=== PATIENT | female | born 1950 | race Caucasian/White ===

== ENCOUNTER → 2018-03-28 12:45 | Outpatient (REF) | payer MEDICARE, BC, SELFPAY ==
--- NOTE | 2018-03-28 11:00 | PAPFT_PTH ---
PATIENT: Shannon Payan LOC: [facility] U#:[id number] AGE/SX: 74/F ROOM: RE03/28/[address]: Mitzy Matias MD, DC : 1950 BED: DIS: SPEC #: [id number] RECD: 03/28/18 13:01 STATUS: JOSE ANGEL CHAVEZ #: [id number] CLARE: 03/28/18 11:[address]: Mitzy Matias DEPT: [facility] Cytology RECD BY: Ines Kelley Tissues: 1 - CX/ENDOCX FOR PAP SMEARS Procedures: PAP THIN PREP/UVM Screening HPV DNA PROBE Comments: [id number]
== END ==
LOC: LBN 12:45
PROVIDERS: PCP Family Medicine; Visit Provider Family Medicine
DX: Z12.4 Encounter for screening for malignant neoplasm of cervix (principal); Z11.51 Encounter for screening for human papillomavirus (HPV)
CPT/HCPCS: 88142; 87624

== ENCOUNTER 2018-05-10 01:52 | Outpatient (CLI) | payer MEDICARE, BC, SELFPAY ==
[2018-05-12 05:09] LABS: Vitamin D 25 Total 36.5 ng/ml (30-100)
== END 2018-05-10 02:12 ==
PROVIDERS: PCP Family Medicine; Visit Provider Internal Medicine Sleep Medicine
DX: E55.9 Vitamin D deficiency, unspecified (principal)
CPT/HCPCS: 36415; 82306

== ENCOUNTER 2019-02-24 09:52 | Outpatient (CLI) | payer MEDICARE, BC, SELFPAY ==
--- NOTE | 2019-02-24 10:00 | DI.RAD_ITS ---
SYMPTOM/DIAGNOSIS: KNEE PAIN, M25.569, LOCKING OF KNEE RIGHT KNEE: Three views. Comparison is made with 12/05/15. There is moderately severe narrowing of the lateral femoral tibial joint space and the patellofemoral joint. Periarticular spurring is seen involving predominantly the lateral femorotibial joint and the patellofemoral joint. The bones are intact and normally mineralized. There is a small suprapatellar joint effusion. The soft tissues are otherwise unremarkable. IMPRESSION: Moderately severe degenerative changes of the right knee. LEFT KNEE: Three views. No priors. There is mild narrowing of the medial femorotibial joint space. Mild spurring is seen of the posterior patella. The bones are intact and normally mineralized. There is a small to moderate sized suprapatellar joint effusion. The soft tissues are unremarkable. IMPRESSION: Mild degenerative changes of the left knee.
== END 2019-02-24 10:12 ==
PROVIDERS: PCP Family Medicine; Visit Provider Family Medicine
DX: M25.561 Pain in right knee (principal); M25.562 Pain in left knee; M17.0 Bilateral primary osteoarthritis of knee; M25.461 Effusion, right knee; M25.462 Effusion, left knee
CPT/HCPCS: 73562

== ENCOUNTER → 2019-03-15 08:42 | Outpatient (BNVA) | payer MEDICARE, BC, SELFPAY | PROVIDERS: PCP Family Medicine; Referring Provider Family Medicine; Visit Provider Student in an Organized Health Care Education/Training Program | DX: M23.92 Unspecified internal derangement of left knee (principal); M17.11 Unilateral primary osteoarthritis, right knee; M25.561 Pain in right knee; M25.562 Pain in left knee | CPT/HCPCS: 20610; 99203; J1040 ==

== ENCOUNTER 2019-03-24 02:34 | Outpatient (CLI) | payer MEDICARE, BC, SELFPAY ==
--- NOTE | 2019-03-24 09:49 | DI.MRI_ITS ---
SYMPTOMS/DIAGNOSIS: LT KNEE SWELLING, LOCKING, STIFFNESS, ? INTERNAL DERANGEMENT, M23.92 LEFT KNEE MRI: MRI examination of the knee was performed according to the usual protocol. There is a small knee joint effusion and a small arroyo's cyst is noted. This measures roughly 25 x 15 mm in greatest diameter on sagittal images. There is cartilage loss of the patellofemoral joint particularly involving the medial facet. There is cartilage loss of medial and lateral tibiofemoral joints most prominent medially with irregular cartilage surface particularly of the medial femoral condyle. There is abnormal signal in the medial meniscus without a discrete tear. The lateral meniscus appears to be discoid. No lateral meniscal tear seen. No significant collateral ligament injury seen. Mildly abnormal signal noted in medial femoral condyle consistent with degenerative changes. No cruciate ligament tear seen. CONCLUSION: Degenerative arthritis most marked involving medial tibiofemoral joint. No evidence of internal derangement.
== END 2019-03-24 02:54 ==
PROVIDERS: PCP Family Medicine; Visit Provider Student in an Organized Health Care Education/Training Program
DX: M17.12 Unilateral primary osteoarthritis, left knee (principal)
CPT/HCPCS: 73721

== ENCOUNTER 2019-03-28 02:17 | Outpatient (CLI) | payer MEDICARE, BC, SELFPAY ==
[2019-03-28 09:44] LABS: ALT 45 U/L (12-78); AST 14 U/L (15-37); Albumin 3.6 g/dL (3.4-5.0); Alkaline Phosphatase 75 U/L (46-116); Anion Gap 9.8 mmol/L (3-11); BUN 21 mg/dL (7-18); Bilirubin, Total 0.4 mg/dL (0.2-1.0); CO2 27.2 mmol/L (21.0-32.0); CREATININE 0.73 mg/dL (0.55-1.02); Calcium 8.6 mg/dL (8.5-10.1); Chloride 107 mmol/L (98-107); Glucose 97 mg/dL (70-100); Potassium 4.2 mmol/L (3.5-5.1); Sodium 144 mmol/L (136-145); TSH (W/Ref FT4) 1.97 uIU/mL (0.36-3.74); Total Protein 6.8 g/dL (6.4-8.2)
== END 2019-03-28 02:37 ==
PROVIDERS: PCP Family Medicine; Visit Provider Family Medicine
DX: E03.9 Hypothyroidism, unspecified (principal); I49.9 Cardiac arrhythmia, unspecified
CPT/HCPCS: 36415; 80053; 84443

== ENCOUNTER → 2019-03-29 08:16 | Outpatient (BNVA) | payer MEDICARE, BC, SELFPAY | PROVIDERS: PCP Family Medicine; Referring Provider Family Medicine; Visit Provider Student in an Organized Health Care Education/Training Program | DX: M17.12 Unilateral primary osteoarthritis, left knee (principal); M17.11 Unilateral primary osteoarthritis, right knee; Z98.890 Other specified postprocedural states; Z86.14 Personal history of Methicillin resistant Staphylococcus aureus infection | CPT/HCPCS: 99213 ==

== ENCOUNTER 2019-05-16 14:26 | Outpatient (CLI) | payer MEDICARE, BC, SELFPAY ==
--- NOTE | 2019-05-16 13:57 | DI.RAD_ITS ---
EXAM: XR STANDING ALIGNMENT INDICATION: pre-operative films. COMPARISON: No exams were available for comparison TECHNIQUE: 2D digital imaging was performed. FINDINGS: In the right knee, there is moderate narrowing of the lateral femorotibial joint space. There is mil d spurring seen laterally. In the left knee, there is mild joint space narrowing and periarticular spurring in the medial femoro tibial joint space. The right lower extremity measures 88.9 cm. The left lower extremity measures 88.8 cm. IMPRESSION: Osteoarthritis of the knees.
== END 2019-05-16 14:46 ==
PROVIDERS: PCP Family Medicine; Visit Provider Student in an Organized Health Care Education/Training Program
DX: M17.0 Bilateral primary osteoarthritis of knee (principal)
CPT/HCPCS: 36415; 80048; 85027; 77073

== ENCOUNTER 2019-05-16 14:39 | Outpatient (CLI) | payer MEDICARE, BC, SELFPAY ==
--- NOTE | 2019-05-16 13:03 | W.PREOPHP ---
Assessment and Plan Assessment and plan (1) Primary localized osteoarthritis of right knee: Status: Chronic Assessment and plan: Plan: Standing alignment films were ordered for pre-operative planning. Educated patient on surgery covering surgical technique via models, recovery process, benefits and risks including but not limited to risk of infection, blood clot, damage to soft tissue/blood vessels/nerves in detail. After discussion patient gives verbal understanding of risks and elects to proceed with scheduling surgery. Patient had opportunity to have questions answered to their satisfaction. They will contact office if issues arise. Patient will continue to be scheduled for right TKA with Dr. Matt. History of Present Illness Narrative: Ms. Payan is a 68-year-old female who presents to clinic for pre-operative visit for scheduled right TKA with Dr. Matt. Patient has been seen in clinic several times regarding bilateral knee pain due to known DJD. She has been experiencing more long-lasting pain in the right knee. She describes as being located most significantly over the lateral aspect of the knee; feels weak especially with twisting motions. Pain is an intermittent pain that can happen at night, at rest and sometimes with activity such as uneven ground and stairs. Patient has undergone arthroscopic surgery to the right knee in ~2015. She did receive bilateral knee injections which provided significant symptomatic relief for approximately 10 days. Due to patient's continued pain and arthritis she was offered surgical intervention and elected to proceed. Due to patient's history of MRSA within her nares she was previously prescribed mupirocin 2% to apply to the nares twice daily for 5 days before surgery. Pertinent Surgical Information Reports had a severe left tonsil infection as a teen that resulted in permanent scar tissue formation. Denies any current sore throat, fevers, difficulty swallowing. Denies past medical history of: Hypertension, stroke, cardiac issues, angina, asthma, COPD, renal issues, liver issues, hepatitis, gastrointestinal issues, ulcers, bleeding disorders, seizures, migraines, anxiety, depression, diabetes, autoimmune disorders Denies prior complications from surgery or anesthesia. Review of Systems Constitutional Constitutional: Denies fever(s), Denies frequent falls and Denies headache(s) Eyes Eyes: Denies change in vision ENT Ears, Nose, Mouth, and Throat: Denies dizziness, Denies ear discharge, Denies headache(s), Denies epistaxis, Denies nasal discharge and Denies sore throat Cardiovascular Cardiovascular: Denies chest pain, Denies rapid heart rate, Denies irregular heart rhythm, Denies palpitations, Denies dyspnea, Denies dyspnea on exertion, Denies orthopnea, Denies paroxysmal nocturnal dyspnea and Denies slow heart rate Respiratory Respiratory: Denies cough, Denies dyspnea, Denies dyspnea on exertion and Denies wheezing Gastrointestinal Gastrointestinal: Denies abdominal pain, Denies melena, Denies hematochezia, Denies constipation, Denies diarrhea, Denies nausea and Denies vomiting Genitourinary Genitourinary: Denies hematuria, Denies dysuria and Denies urinary urgency Musculoskeletal Musculoskeletal: Reports as per HPI, Denies numbness and Denies tingling Neurologic Neurologic: Denies dizziness, Denies frequent falls, Denies headache(s), Denies numbness and Denies tingling Psychiatric Psychiatric: Denies anxiety and Denies depression Endocrine Endocrine: Denies palpitations Allergic/Immunologic Allergic/Immunologic: Denies wheezing [facility] Medical History (Updated 05/16/19 @ 13:28 by Gem Jones) Allergic rhinitis (Chronic) seasonal; Basal cell carcinoma of back (Resolved) BASAL CELL CANCER ON HER BACK Cardiac arrhythmia (Resolved) PVC'S Cervical pain (neck) (Chronic 05/26/16) Hypothyroidism (Chronic 08/04/12) 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) Obstructive sleep apnea syndrome (Chronic 07/15/07) Bi-PAP Polyp of colon (Chronic) Tubular adenoma ([facility] 07/28) Squamous cell carcinoma (Acute) Face Varicose veins of lower extremity (Chronic) Vitamin D deficiency (Chronic 03/28/18) Surgical History (Updated 05/16/19 @ 13:28 by Gem Jones) frozen shoulder Right History of local excision of skin lesion (Acute) 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 Maternal Grandmother , 78 Diabetes Essential hypertension Breast cancer Paternal Grandmother , 89 No problems noted. Son Essential hypertension Son No problems noted. Son No problems noted. Other Family hx-breast malignancy Social History Smoking/Tobacco Use Status: Never Alcohol Intake: current Alcohol Intake frequency: 0-2 drinks per day Drug use: Never Substance use type: does not use Caregiver/Support person: No Household members: spouse Housing: house Communication Needs: Corrective Lenses Do you need help understanding health information?: Rarely Pets and animals: Yes Pets and animals: dog(s) Sexually active: No Do you think of yourself as: straight/heterosexual Current gender identity: female What is your relationship status?: How often do you talk on the phone with friends or family?: twice per week How often do you get together with friends or relatives?: once per week How often do you attend scientology or gnosticist services?: 1-3 times per year Do you belong to any clubs or organized social groups?: yes Panel score (0-1 are the most socially isolated patients): 3 What type of physical activity do you participate in: walking Duration: 15-30 minutes/day Frequency: 3-4 times per week Silvia/Episcopalian: Anglican Special silvia needs: No Seatbelt use: always Helmet use: Yes Helmet use: always Drive intox or ride w/intox armor reconnaissance vehicle driver: No Meds Home Medications and Allergies Home Medications Medication Instructions Recorded Confirmed Type ibuprofen 2 - 4 tab PO PRN 04/11/13 04/03/19 History Bi-Pap 05/26/16 04/03/19 Clinic propranolol 10 mg PO BID PRN #30 tab-cap 03/28/18 04/03/19 Rx nystatin 100,000 unit/gram topical 1 applic TP TID #60 gm 05/26/18 04/03/19 Rx powder mupirocin 2 % topical ointment 1 applic TP BID #30 gm 03/29/19 04/03/19 Rx epinephrine 0.3 mg/0.3 mL 0.3 mg IM ONCE #2 pen 04/03/19 04/03/19 Rx injection, auto-injector estradiol 1 gm VG HS PRN #42.5 gm 04/03/19 04/03/19 Rx hydrocortisone 2.5 % topical cream 1 applic TP QHS PRN gm 04/03/19 04/03/19 History ketoconazole 2 % topical cream 1 applic TP DAILY PRN 04/03/19 04/03/19 History levothyroxine 50 mcg tablet 50 mcg PO DAILY #90 tab-cap 04/03/19 04/03/19 Rx magnesium 250 mg tablet 250 mg PO DAILY 04/03/19 04/03/19 History metronidazole 0.75 % topical gel 1 applic TOPICAL BID prn #45 gm 04/03/19 04/03/19 Rx jrwuajiwmcgu-svghqqjs-sfkbrw 1 tab PO DAILY 04/03/19 04/03/19 History mupirocin 2 % topical ointment 1 applic TOPICAL BID #22 gm 04/03/19 04/03/19 Rx Allergies Allergy/AdvReac Type Severity Reaction Status Date / Time nickel Allergy Intermediate rash Unverified 05/16/19 13:35 venom-honey bee Allergy Verified 05/16/19 13:35 CAT HAIR Allergy Mild sneezing Uncoded 05/16/19 13:35 DUST Allergy Mild sneezing Uncoded 05/16/19 13:35 trees and grass Allergy Mild Uncoded 05/16/19 13:35 Exam Const General: cooperative and no acute distress [facility] Head: normal to inspection, normocephalic and atraumatic Ears: external ears normal General nose exam: external nose normal and no nasal discharge Face and sinus: face symmetric Mouth: oral mucosae normal, lip normal, tongue normal and moist mucous membranes Teeth and gingiva: dentition normal Throat: abnormal tonsil (enlarged; no erythema or exudates noted) on the left Eyes General: appearance normal, both eyes and all related structures Pupils: PERRL EOM: EOM intact bilaterally Neck Neck: trachea midline Carotids: normal carotid upstroke Lymphatic: no lymphadenopathy noted Resp Effort & Inspection: normal respiratory effort and able to speak in complete sentences Auscultation: clear to auscultation bilaterally, no rales, no rhonchi and no wheezes Cardio Heart Sounds: S1 normal, S2 normal and no murmurs Pulses: radial pulses present bilaterally GI Palpation: soft, no hepatosplenomegaly and nontender Auscultation: normal bowel sounds Skin General skin exam: no rashes or lesions noted
== END 2019-05-16 14:59 ==
PROVIDERS: PCP Family Medicine; Visit Provider Student in an Organized Health Care Education/Training Program
DX: M17.11 Unilateral primary osteoarthritis, right knee (principal); Z01.818 Encounter for other preprocedural examination

== ENCOUNTER 2019-05-16 15:34 | Outpatient (CLI) | payer MEDICARE, BC, SELFPAY ==
[2019-05-16 16:25] LABS: HCT 40.8 % (36.0-46.0); HGB 13.6 g/dL (12.0-15.5); Mean Corp. HGB Concentration 33.3 g/dL (32.0-36.0); Mean Corpuscular Volume 89.9 fL (80-95); Platelet Count 268 x1000/uL (130-400); RBC 4.54 m/cumm (4.00-5.20); RBC Distribution Width 12.8 % (11.7-14.6); White Blood Cell Count 6.57 k/cumm (4.4-10.8)
[2019-05-16 16:46] LABS: Anion Gap 12.4 mmol/L (3-11); BUN 18 mg/dL (7-18); CO2 26.6 mmol/L (21.0-32.0); CREATININE 0.71 mg/dL (0.55-1.02); Calcium 8.9 mg/dL (8.5-10.1); Chloride 106 mmol/L (98-107); Glucose 97 mg/dL (70-100); Sodium 145 mmol/L (136-145)
== END 2019-05-16 15:54 ==
PROVIDERS: PCP Family Medicine; Visit Provider Student in an Organized Health Care Education/Training Program
DX: M25.561 Pain in right knee (principal); M17.11 Unilateral primary osteoarthritis, right knee; Z01.812 Encounter for preprocedural laboratory examination; Z01.818 Encounter for other preprocedural examination
CPT/HCPCS: 36415; 80048; 85027

== ENCOUNTER 2019-05-24 10:26 | Inpatient (IN) | payer MEDICARE, BC, SELFPAY ==
[2019-05-24 10:53] VITALS: BP 163/97; PULSE 74; RESP 16; TEMP 36.2; O2SAT 96
--- NOTE | 2019-05-24 11:08 | HOME_ITS ---
Home Ventilator Equipment Home care company [employer] Reason: Obstructive Sleep Apnea Make: Respironics Model: Dreamstation Mask type: Face mask Mask size: Small Mode: BiPAP Settings: 12/8 Oxygen bleed in (lpm): 0 Condition: Good Date last checked: Year of last sleep study: Compliance Comments:
[2019-05-24 11:17] VITALS: BP 163/97; PULSE 74; RESP 16; TEMP 36.2; O2SAT 96
[2019-05-24] MEDS: Lactated Ringers 1,000 ML 80 ML IV ×2 (11:37→17:42)
[2019-05-24] MEDS: Acetaminophen 500 MG TAB 1000 MG PO ×2 (11:38→19:38)
[2019-05-24] MEDS: Celecoxib 200 MG CAP 400 MG PO (11:38)
[2019-05-24] MEDS: Gabapentin 300 MG CAP PO ×2 (11:39→21:22)
[2019-05-24] MEDS: ceFAZolin 2 GM/50 ML BAG IVPB (13:30)
--- NOTE | 2019-05-24 14:07 | NUR.NOTE ---
Pt reports having flu shot at [facility] on 05/16/19 jmpNursing Note:
[2019-05-24] MEDS: Bupivacaine 0.25% Pres-Free 30 ML VIAL (15:05)
[2019-05-24] MEDS: Normal Saline 20 ML VIAL (15:05)
[2019-05-24] MEDS: Ketorolac 30 MG/ML VIAL (15:05)
[2019-05-24 16:25] VITALS: BP 133/83; PULSE 53; RESP 16; TEMP 36.4; O2SAT 98
[2019-05-24 16:58] VITALS: RESP 12
[2019-05-24] MEDS: Normal Saline Flush 10 ML SYR IV (17:38)
--- NOTE | 2019-05-24 18:13 | NUR.NOTE ---
Nursing Note: Patient arrived from the OR via stretcher and admitted to room 226 at 1540
[2019-05-24] MEDS: Nystatin POWDER 15 GM JAR TP (19:38)
[2019-05-24] MEDS: Aspirin E.C. 81 MG TABEC PO (19:38)
[2019-05-24] MEDS: Celecoxib 200 MG CAP PO (19:38)
[2019-05-24 20:10] VITALS: RESP 12
[2019-05-24 20:17] VITALS: BP 126/82; PULSE 68; RESP 18; TEMP 37; O2SAT 97
[2019-05-24] MEDS: oxyCODONE 5 MG TAB PO (21:22)
[2019-05-24] MEDS: HYDROmorphone 2 MG/ML VIAL 0.5 MG IVP (23:12)
[2019-05-25 00:22] VITALS: BP 102/69; PULSE 59; RESP 17; TEMP 36.7; O2SAT 96
[2019-05-25 04:10] VITALS: BP 121/74; PULSE 62; RESP 16; TEMP 36.8; O2SAT 97
[2019-05-25] MEDS: HYDROmorphone 2 MG/ML VIAL 0.5 MG IVP ×2 (05:54→08:41)
[2019-05-25] MEDS: Lactated Ringers 1,000 ML 80 ML IV (05:58)
--- NOTE | 2019-05-25 06:25 | ROE_ITS ---
Date of service: 05/24/19 Time of Service: 16:25 Operative Note Operative Note DATE OF PROCEDURE: 05/24/19 PRE-OP DIAGNOSIS: Right Knee DJD with Valgus Deformity POST-OP DIAGNOSIS: same PROCEDURE: Right Total Knee Arthroplasty with Intraoperative Navigation SURGEON: Pablo Matt DIRECTOR [employer]: Rolanda Moreno ANESTHESIA: regional and spinal ESTIMATED BLOOD LOSS: 200 PATHOLOGY: none sent TOURNIQUET TIME: 30 COMPLICATIONS: None Patient was transported to: PACU Patient's condition: stable Implants: 1. Depuy Attune Posterior Stabilized Femoral Component, Size 6 Narrow 2. Depuy Attune Fixed Platform Tibial Component, Size 4 3. Depuy Attune 6x8mm Fixed, Stabilized Poly 4. Depuy Attune Patellar Component, Size 32mm Indications: I have seen Shannon in clinic for symptoms of knee arthritis, confirmed with radiographic findings. She has exhausted nonoperative methods and was having significant limitations in daily function and desired better function and less pain. I discussed the technical details of a knee replacement. I explained the risks of the procedure to include, but not limited to, bleeding, infection, pain, stiffness, fracture, damage to nerves and vessels, damage to muscles and tendons, loosening, need for repeat procedure, blood clot and cardiopulmonary demise. Despite these risks, Shannon elected to proceed. Findings: There was significant signs of arthritis throughout the knee. These changes were seen throughout the knee but focus primarily over the lateral compartment. Procedure Description: Shannon was greeted in the preoperative holding area where the correct side was identified and marked. The consent was reviewed with the patient and signed. The history and physical was updated. All questions were answered. Preoperative mediacations were administered: Acetaminophen 1000mg, Celebrex 400mg, and Gabapentin 300mg. An adductor canal block was then administered by the anesthesia team in the PACU. Shannon was taken back to the operating room. A spinal anesthestic was then administered. The patient was placed into the supine position on the operating room table. A nonsterile tourniquet was placed high onto the leg but only used for cementing. Posts were placed for positioning during the procedure. All bony prominences were well padded. Prophylactic antibiotics in the form of Cefazolin were administered. 1g of Tranxemic Acid was given intravenously within 30 minutes of incision. The right leg was then prepped with Chloraprep and draped in a standard fashion with impervious stockinette and extremity drape with Iodine impregnated skin protection. A timeout to confirm correct identity, side and site, procedure, allergies, anesthesia, and medical concerns was performed. With the knee in some flexion, a midline incision was made overlying the knee. Full thickness skin flaps were raised once the extensor mechanism was encountered. These were raised medially and laterally. Any bleeding was controlled with electrocautery. Once the extensor mechanism was fully exposed, a medial parapatellar arthrotomy was performed in a flexed position. All bleeding from the arthrotomy and the geniculate arteries was coagulated. A medial subperiosteal peel was performed with electrocautery to the midcoronal plane. The fat pad was removed while keeping the patellar tendon protected. The anterior distal femur synovium was removed for later visualization. The ACL and PCL were resected and the anterior horn of the lateral meniscus was transected. The knee was then flexed with the patella everted. Large osteophytes from the tibia were removed. Large osteophytes from the femur were removed. There was some hypoplasia of the lateral femoral condyle and any remnant cartilage of the medial femoral condyle was removed for appropriate thickness. A single starting pin was then placed 1cm anterior to the PCL insertion and the notch in the direction of the femoral head. The OrthoAlign device was applied over the pin. It was oriented to be in line with the epicondylar axis and the trochlear groove. It was then pinned into place. The navigation computer was then turned on and calibrated. The distal femur cut was set at 0 degrees varus/valgus and 2.5 degrees flexion. The distal femur cutting guide then was positioned for a 9mm cut. The distal femur was cut with an oscillating saw while protecting the soft tissues. The tibia was then addressed. The OrthoAlign device was placed over the tibial tubercle and medial tibia and secured into position. Once again, OrthoAlign was calibrated and then set for a 0 degree varus/valgus cut and 3 degrees of posterior slope. With this locked into position, the cut thickness stylus was used to assess cut thickness. The lateral side, most involved side, was set for a 4mm cut. This was then held in position and pinned into place with 2 additional pins and a cross pin for stability. The medial and lateral collateral ligaments were protected and the cut was performed. With this completed, it was assessed and noted to be of appropriate dimensions. The guide and OrthoAlign was removed. A spacer block was inserted and the knee was brought into extension. The 6mm spacer block provided full extension, without hyperextension and with stability of both the medial and lateral collateral ligaments was assessed. The pins from the femur and the tibia were then removed. The distal femur was then sized. The anterior stylus was placed onto the lateral ridge of the anterior femur. This indicated a size 6 Narrow femur. The external rotation of the guide was adjusted to 5 degrees to match the epicondylar axis, perpendicular to Michael?s line. The 4-in-1 cutting guide was the placed. The posterior medial femur cut was evaluated and appeared of good thickness. The spacer block was inserted underneath the cutting guide and stability was confirmed in 90 degrees of flexion. An juana wing was used to confirm appropriate position of the anterior cut to avoid notching. This cutting guide was ensured to be flush on the cut surface and then pinned into place with headed pins. While protecting the soft tissues, quad tendon, and collateral ligaments, the anterior and posterior cuts were performed with a saw. The central two pins were removed and the posterior and anterior chamfers were cut next. The notch-cutting guide was placed. This was pinned to lateralize the femoral component as much as possible while keeping it flush on the cut surface. This was then pinned into position. A reciprocating saw was used to make the notch cut. A rasp smoothed the cut surfaces. A trial posterior stabilized femoral component was then inserted, impacted down to the cut surfaces, and the lug holes were drilled. A provisional trial tibial component was placed and the knee was brought through range of motion. The polyethylene was trialed until there was good flexion and extension with excellent stability to the medial and lateral collaterals. The patella was tracking without thumbs. The tibial cut surface was fully exposed. The medial and lateral menisci were removed. The tibia was then sized as a 4. The tibia had been previously marked during trialing to correspond to the center of the tibial component to help with rotation. The trial was aligned to this rolanda, approximately rotated to the medial 1/3rd of the tibial tubercle. The trial was pinned into place. The tibia was prepared with a reamer and a keel punch. The knee was then brought into extension and the patella was measured as 25mm. Using the patellar clamp and cut guide, this was resected to a flat surface with at least 13mm of thickness remaining. The size 32mm patella fit the best. This was oriented and then clamped into position. The lugs were drilled. The trial components were removed. The final components, except for the polyethylene were opened on the back table. The periosteal and capsular tissues, especially posteriorly, around the knee were then systematically injected with a periarticular cocktail consisting of 50cc 0.25% Marcaine, 30mg Ketorolac, 20cc of Exparal and 50cc of injectable saline. The tourniquet was then inflated to 275mmHg. The knee was thoroughly irrigated with a pulse lavage and dried. On the back table, with the implants opened, the cement was mixed. 2 batches of antibiotic laden cement were prepared with vacuum assistance. After the cement was ready a small amount was placed on to the back side of the tibial component at the keel. A small amount was placed onto the posterior flange of the femur. Cement was manual pressurized and impregnated into the cut surface of the tibia. The tibial component was then inserted into the cut surface and impacted into position. Excess cement was removed and the component was reimpacted. Again, excess cement was removed and our attention was then turned to the femur. The femoral cut surface was once again dried and cement was manually impacted into the cut surface. The femoral component was lined with the lug holes and impacted. Excess cement was removed. It was ensured to be down against the cut surface. The trial polyethylene was then inserted and the leg was brought out into full extension for the duration of the cement curing process, approximately 15min. Cement was lastly manually impacted into the cut surface of the patella and the patellar button was clamped into position and held. During this process attention was turned to the gutters of the knee and for all interfaces for any excess cement. The knee was irrigated with Irrisept, Chlorhexadine solution, and allowed to sit in the knee wound for 3 minutes. After the cement had finally cured, approximately 15min, the clamp was removed from the patella and the knee was taken through range of motion. A size 8mm polyethylene component provided the best range of motion and stability with less than 2mm gapping with medial and lateral stress and full extension without sig nificant hyperextension. The patella was tracking with a no-thumbs technique. The trial poly was removed and once again the knee was checked for any loose, excess, or errant cement. The poly component was then inserted and impacted into position after cleaning and drying the tibial tray. The capsule was then reapproximated with a No. 1 Vicryl at multiple locations. The capsule was finally closed with a No. 2 Stratafix, barbed suture. The tourniquet was then released and the arthrotomy appeared watertight without significant bleeding. The second dosing of 1g TXA was started. Deep tissues were then reapproximated with 0 Vicryl and 2-0 Vicryl. The skin was closed with a running 3-0 Monocryl in a subcuticular fashion. This was reinforced with skin glue. A Mepilex silver dressing was applied along with a nvvi-yd-quift CORDELL wrap. A CryoCuff was applied. Shannon was transferred to the hospital bed without difficulty an suffering no apparent complication. Shannon has a good prognosis. Physical therapy will start today and without restrictions, weight-bearing as tolerated. Aspirin 81mg BID will be used for DVT prophylaxis.
[2019-05-25 07:25] VITALS: BP 142/77; PULSE 72; RESP 18; TEMP 36.7; O2SAT 99
--- NOTE | 2019-05-25 08:19 | W.PM.DS.N ---
Date of service: 05/25/19 Time of Service: 08:19 DS: Diagnosis Discharge Diagnosis (1) Primary localized osteoarthritis of right knee: Status: Chronic Discharge Plan Disposition Patient Disposition: HOME Condition: Good Discharge Details Reason For Visit: (R) KNEE TOTAL Admit Date/Time: 05/24/19 10:26 Admit Provider: Pablo Matt Attending Provider: Pablo Matt Primary Care Provider: Mitzy Matias [facility] Hospital Course: Patient was admitted to the medical/surgical floor following the procedure. It was tolerated well without any notable medical, surgical, or anesthetic complications. Mobilization began postoperatively. The youssef catheter was removed and voiding spontaneously. Vitals were stable. Physical therapy worked with the patient and was cleared for discharge home. No acute medical issues. Home Meds and New Rx's Prescriptions: New acetaminophen 500 mg tablet 1,000 mg PO Q8H PRN (Reason: pain) Qty: 90 RF: 3 aspirin 81 mg tablet,delayed release (DR/EC) 81 mg PO BID Qty: 60 RF: 0 celecoxib 200 mg capsule 200 mg PO BID PRN (Reason: pain) Qty: 60 RF: 1 oxycodone 5 mg tablet 5 mg PO Q4H Qty: 18 RF: 0 pantoprazole 40 mg tablet,delayed release (DR/EC) 40 mg PO DAILY Qty: 30 RF: 0 gabapentin 300 mg capsule 300 mg PO QHS Qty: 7 RF: 0 Continued magnesium 250 mg tablet 250 mg PO DAILY RF: 0 hydrocortisone 2.5 % cream 1 applic TP QHS PRNRF: 0 ketoconazole 2 % cream 1 applic TP DAILY PRNRF: 0 mhxuxlxxdysn-oftwqypd-zrycix Tablet 1 tab PO DAILY RF: 0 levothyroxine 50 mcg tablet 50 mcg PO DAILY Qty: 90 RF: 4 metronidazole 0.75 % gel 1 applic Topical BID prn Qty: 45 RF: 3 mupirocin 2 % ointment 1 applic Topical BID Qty: 22 RF: 11 estradiol [Estrace] 0.01 % (0.1 mg/gram) cream 1 gm VG HS PRN Qty: 42.5 RF: 3 epinephrine 0.3 mg/0.3 mL auto-injector 0.3 mg IM ONCE Qty: 2 RF: 1 nystatin 100,000 unit/gram powder 1 applic TP TID Qty: 60 RF: 3 mupirocin 2 % ointment 1 applic TP BID Qty: 30 RF: 0 Bi-pap RF: 0 propranolol 10 MG tablet 10 mg PO BID PRN Qty: 30 RF: 3 loratadine [Claritin] 10 mg Tablet RF: 0 Discontinued ibuprofen 200 MG capsule 2 - 4 tab PO PRN RF: 0 Discharge Instructions Additional Instructions: Dr. Matt?s Total Knee Discharge Instructions Activity: The most important activity is to walk. You should try to take short walks a few times a day. It is important that when resting you work on keeping the knee straight. Avoid putting a pillow behind the knee as this will encourage flexion. Work on range of motion exercises as provided by Physical Therapy. - Start outpatient physical therapy within 2 weeks. - You should wear the NATALIA hose on both legs for 2 weeks. Dressing: Keep the surgical dressing in place for at least one week. After the first week it may be removed and replace with light gauze and tape or nothing. It may get wet after 3 days but avoid soaking the dressing. If it gets wet, just lightly pat dry. Medications: - You should take Tylenol and anti-inflammatory Celebrex as your primary pain control medications - You have been prescribed a stronger pain medication Oxycodone for breakthrough pain, take as needed as prescribed. - You have also been prescribed a stomach acid reduction agent Pantoprozole to help reduce stomach acid and reflux. - You will be taking Aspirin 81mg twice a day for DVT prevention unless instructed otherwise. - If you have constipation you should take Colace or Miralax (both [id number]-heanmiq). It takes most people 3-4 days to have a bowel movement. Follow-up: 2 weeks Referrals: Pablo Matt MD [ [facility] STAFF PHYSICIAN] - [facility] [Provider Group] (Outpatient PT for R TKA. Start by 2 weeks post-op) Activity:: Activity as Tolerated Equipment/Supplies:: Walker Diet:: As Tolerated Discharge Orders Discharge Orders: Discharge Order (Routine); Ordered 05/25/19 Ordered By: Pablo Matt DS: Summary Status at Discharge Functional status at discharge: uses cane/walker Overall status at discharge: patient is progressing back to baseline Mental Status: mental status grossly normal Speech and Movement: speech and movement normal Mood: congruent mood Affect: normal affect Exam Psych Mental Status: mental status grossly normal Speech and Movement: speech and movement normal Mood: congruent mood Affect: normal affect DS: Data Vitals/I&O Vitals and I&O: Vital Signs Temperature 36.8 C 05/25/19 04:10 Temperature Source Tympanic 05/25/19 04:10 Pulse 62 05/25/19 04:10 Pulse Rhythm Regular 05/24/19 23:45 Respiratory Rate 16 05/25/19 04:10 Respiratory Effort Non-Labored 05/24/19 23:45 Respiratory Depth Normal 05/24/19 23:45 Respiratory Pattern Normal 05/24/19 23:45 Blood Pressure 121/74 05/25/19 04:10 Pulse Oximetry 97 05/25/19 04:10 Oxygen Delivery Method Room Air 05/25/19 04:10 Oxygen Flow Rate 0 05/25/19 04:10 Fraction of Inspired Oxygen (FIO2) 21 05/24/19 20:10 Pain Level 3 05/25/19 05:54 Intake & Output 05/24/19 05/24/19 05/25/19 11:59 23:59 11:59 Intake Total 1486.667 / 1486.667 983.999 / 983.999 Output Total 750 / 750 Balance 736.667 / 736.667 983.999 / 983.999 Weight 90.1 kg Intake: IV 1366.667 / 1366.667 983.999 / 983.999 Oral 120 / 120 Output: Urine 450 / 450 Estimated Blood Loss 300 / 300 Other: Urine Color Yellow Urine Appearance Clear Data Completed and Pending Labs on day of discharge: 05/24/19 16:05 Nose MRSA Screen - Pending Preliminary micro results at discharge 05/24/19 16:05 MRSA Screen - Pending Nose [facility] Medical History Allergic rhinitis (Chronic) seasonal; Basal cell carcinoma of back (Resolved) BASAL CELL CANCER ON HER BACK Cardiac arrhythmia (Resolved) PVC'S Cervical pain (neck) (Chronic 05/26/16) Hypothyroidism (Chronic 08/04/12) 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) Obstructive sleep apnea syndrome (Chronic 07/15/07) Bi-PAP Polyp of colon (Chronic) Tubular adenoma ([facility] [place] 07/28) Squamous cell carcinoma (Acute) Face Varicose veins of lower extremity (Chronic) Vitamin D deficiency (Chronic 03/28/18) Surgical History frozen shoulder Right History of local excision of skin lesion (Acute) 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 Maternal Grandmother , 78 Diabetes Essential hypertension Breast cancer Paternal Grandmother , 89 No problems noted. Son Essential hypertension Son No problems noted. Son No problems noted. Other Family hx-breast malignancy Social History Smoking/Tobacco Use Status: Never Alcohol Intake: current Alcohol Intake frequency: 0-2 drinks per day Drug use: Never Substance use type: does not use Caregiver/Support person: No Household members: spouse Housing: house Communication Needs: Corrective Lenses Do you need help understanding health information?: Rarely Pets and animals: Yes Pets and animals: dog(s) Sexually active: No Do you think of yourself as: straight/heterosexual Current gender identity: female What is your relationship status?: How often do you talk on the phone with friends or family?: twice per week How often do you get together with friends or relatives?: once per week How often do you attend alevism or sabianist services?: 1-3 times per year Do you belong to any clubs or organized social groups?: yes Panel score (0-1 are the most socially isolated patients): 3 What type of physical activity do you participate in: walking Duration: 15-30 minutes/day Frequency: 3-4 times per week Silvia/Sikhism: Scientology Special silvia needs: No Seatbelt use: always Helmet use: Yes Helmet use: always Drive intox or ride w/intox commercial trailer truck 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
[2019-05-25] MEDS: Aspirin E.C. 81 MG TABEC PO (08:42)
[2019-05-25] MEDS: Normal Saline Flush 10 ML SYR IV (08:42)
[2019-05-25] MEDS: Pantoprazole 40 MG TABCR PO (08:43)
[2019-05-25] MEDS: Levothyroxine 50 MCG TAB PO (08:43)
[2019-05-25] MEDS: Acetaminophen 500 MG TAB 1000 MG PO (08:43)
[2019-05-25] MEDS: Celecoxib 200 MG CAP PO (08:43)
[2019-05-25] MEDS: Multivitamin w/Minerals TAB 1 TAB PO (08:43)
[2019-05-25] MEDS: Nystatin POWDER 15 GM JAR TP (09:23)
--- NOTE | 2019-05-25 10:52 | INITIAL_ITS ---
- If Service Date Differs Date of service: 05/25/19 Time of Service: 10:52 Care Management Initial Assess REASON FOR HOSPITALIZATION:: Total knee replacement. PAST MEDICAL HISTORY/PAST SURGICAL HISTORY:: Medical History: Allergic rhinitis, seasonal, basal cell carcinoma of back, cardiac arrhythmia, PVC'S, cervical pain (neck), hypothyroidism, MRSA (methicillin resistant Staphylococcus aureus), obstructive sleep apnea syndrome, Bi-PAP, polyp of colon, tubular adenoma, squamous cell carcinoma, face, varicose veins of lower extremity, and vitamin D deficiency. 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 PREVIOUS FUNCTIONAL STATUS/SOCIAL/FAMILY SUPPORTS:: Shannon resides in [place] with her . She states he is quite helpful around the home and is supportive of her. She does most of the cooking and housework but her helps out when needed. She is independent in the community, drives, and manages her own ADLs. CURRENT FUNCTIONAL STATUS:: Shannon is sitting in a chair when meets with her. She is pleasant and easily engages in conversation. She talks about their intermediate home and their 5 month old Labradoddle puppy. She expresses some concerns around their dog who is quite active and says the dog will need to be kept on a leash or in a cage while she recuperates from her knee surgery. ADVANCE DIRECTIVES:: On file at [facility]; Harvey is her agent. Has patient been provided with information about the portal?: Yes Did the patient sign up for the portal?: Yes CODE STATUS:: Full Code INSURANCE COVERAGE / FINANCIAL ISSUES:: BCBS and Medicare CURRENT HOME/COMMUNITY SERVICES/EQUIPMENT:: Shannon has borrowed a walker for home use. She states their shower has a bench in it and her is working on putting together a walk-in bathtub. She has also ordered a raised toilet seat for the bathroom. She reports there are no stairs in the home except for the basement stairs and she has no reason to go to the basement. PRIMARY CARE PHYSICIAN:: Mitzy Matias MD POTENTIAL DISCHARGE NEEDS:: Follow-up appointment with PCP and PT. PATIENT/FAMILY EDUCATION NEEDS:: Discharge plan, limitations, and follow-up plan of care, including Ask Me Three and self-management. ANTICIPATED BARRIERS TO DISCHARGE:: None identified at this time. TRANSPORTATION:: is transporting Shannon home via private vehicle. PLAN:: Shannon will be discharged home when medically cleared by provider. Anticipate no additional services needed at time of discharge. Patient's will be transporting her home upon discharge.
--- NOTE | 2019-05-25 14:20 | PDOC.CMDIS ---
- If Service Date Differs Date of service: 05/25/19 Time of Service: 14:20 LACE Index Scoring Tool - Questions: Length of Stay (in days): 1 Acuity (Admit via E.D.?): No Comorbidities: Any Tumor E.D. Visits: 0 - Answers: Total Score: 3 Risk of Readmission: Low Risk Care Management Discharge Reason for Hospitalization: Total knee replacement. Discharge Plan: Shannon is discharged home. She will follow up with Dr. Matt, her PCP, outpatient PT, and her plan of care as directed. Shannon has all DME needed at home, as she has borrowed a front wheel walker. Patient/Family Education Needs: Nursing will review discharge instructions with Shannon re medications and activity level. Shannon is able to verbalize reason for hospitalization and how to manage care at home.
== END 2019-05-25 11:32 | disposition home or self-care (01) | DRG 470 ==
LOC: PDS 14:46 → MS 15:51
PROVIDERS: Admitting Provider Student in an Organized Health Care Education/Training Program; PCP Family Medicine; Visit Provider Student in an Organized Health Care Education/Training Program
PROC: 0SRC0J9 Replacement of Right Knee Joint with Synthetic Substitute, Cemented, Open Approach (ICD-10-PCS; CPT 27447; principal; 2019-05-24 12:00)
DX: M17.11 Unilateral primary osteoarthritis, right knee (principal); M25.561 Pain in right knee; M21.061 Valgus deformity, not elsewhere classified, right knee; Z96.651 Presence of right artificial knee joint; G89.18 Other acute postprocedural pain; G47.33 Obstructive sleep apnea (adult) (pediatric); Z86.14 Personal history of Methicillin resistant Staphylococcus aureus infection; E03.9 Hypothyroidism, unspecified
CPT/HCPCS: 27447; 20985; 87081; 97110; 97162; NC; J0690; J1885

== ENCOUNTER 2019-06-08 10:26 | Outpatient (CLI) | payer MEDICARE, BC, SELFPAY ==
--- NOTE | 2019-06-08 10:08 | DI.RAD_ITS ---
EXAM: XR STANDING ALIGNMENT INDICATION: 1ST POST OP. COMPARISON: XR STANDING ALIGNMENT from 05/16/2019 TECHNIQUE: 2D digital imaging was performed. FINDINGS: The left leg measures 88.5 cm. The right leg measures 87.7 cm. The patient is status post right TKA.
--- NOTE | 2019-06-08 10:08 | DI.RAD_ITS ---
EXAM: XR KNEE RT 1V INDICATION: 1ST POST OP. COMPARISON: RIGHT KNEE LIMITED 1 OR 2 VIEW from 12/05/2015 TECHNIQUE: 2D digital imaging was performed. FINDINGS: A lateral projection of the right knee is provided. The patient is status post TKA. The prosthesis a ppears to be in good position, surrounding bone intact.
== END 2019-06-08 10:46 ==
PROVIDERS: PCP Family Medicine; Referring Provider Family Medicine; Visit Provider Student in an Organized Health Care Education/Training Program
DX: Z96.651 Presence of right artificial knee joint (principal); Z47.1 Aftercare following joint replacement surgery; M21.70 Unequal limb length (acquired), unspecified site; M17.12 Unilateral primary osteoarthritis, left knee
CPT/HCPCS: 73560; 77073

== ENCOUNTER 2019-06-20 09:45 | Outpatient (CLI) | payer MEDICARE, BC, SELFPAY ==
[2019-06-20 10:15] LABS: HCT 38.7 % (36.0-46.0); HGB 12.4 g/dL (12.0-15.5); Mean Corpuscular Hemoglobin 29.7 pg (27.0-33.0); Mean Corpuscular Volume 92.6 fL (80-95); Mean Platelet Volume 10.5 fL (8.0-11.0); Platelet Count 281 x1000/uL (130-400); RBC 4.18 m/cumm (4.00-5.20); RBC Distribution Width 12.9 % (11.7-14.6); White Blood Cell Count 4.73 k/cumm (4.4-10.8)
[2019-06-20 11:08] LABS: Anion Gap 10.5 mmol/L (3-11); BUN 22 mg/dL (7-18); CO2 27.5 mmol/L (21.0-32.0); Calcium 9.1 mg/dL (8.5-10.1); Chloride 105 mmol/L (98-107); Glucose 93 mg/dL (70-100); Potassium 4.1 mmol/L (3.5-5.1); Sodium 143 mmol/L (136-145)
== END 2019-06-20 10:05 ==
PROVIDERS: PCP Family Medicine; Visit Provider Student in an Organized Health Care Education/Training Program
DX: M25.562 Pain in left knee (principal); M17.12 Unilateral primary osteoarthritis, left knee; Z01.818 Encounter for other preprocedural examination; Z01.812 Encounter for preprocedural laboratory examination
CPT/HCPCS: 36415; 80048; 85027

== ENCOUNTER 2019-06-28 08:55 | Inpatient (IN) | payer MEDICARE, BC, SELFPAY ==
[2019-06-28] VITALS (11 sets, daily range): BP systolic 109–155; BP diastolic 60–91; PULSE 61–81; RESP 11–18; TEMP 36.4–37.1; O2SAT 94–97
[2019-06-28] MEDS: Lactated Ringers 1,000 ML 80 ML IV ×2 (09:46→16:56)
[2019-06-28] MEDS: Acetaminophen 500 MG TAB 1000 MG PO ×2 (10:26→19:42)
[2019-06-28] MEDS: Gabapentin 300 MG CAP PO ×2 (10:26→21:30)
[2019-06-28] MEDS: Celecoxib 200 MG CAP 400 MG PO (10:26)
[2019-06-28] MEDS: Bupivacaine 0.25% Pres-Free 30 ML VIAL ×2 (11:34→14:33)
--- NOTE | 2019-06-28 12:01 | NUR.NOTE ---
Nursing Note: This nurse took another set of vitals on pt after block. She was at 142/78, 96% on room air, hr74, rr16. She was taken to the bathroom to void after this. Pt was able to ambulate to the restroom with two staff members to guide after the block.
[2019-06-28] MEDS: FAMOTIDINE 20 MG/50 ML BAG 200 MG IVPB (12:51)
[2019-06-28] MEDS: ceFAZolin 2 GM/50 ML BAG IVPB (13:13)
[2019-06-28] MEDS: Ketorolac 30 MG/ML VIAL (14:33)
[2019-06-28] MEDS: Normal Saline 20 ML VIAL (14:33)
--- NOTE | 2019-06-28 14:55 | W.PM.OP ---
Date of service: 06/28/19 Time of Service: 14:55 Operative Note Operative Note DATE OF PROCEDURE: 06/28/19 PRE-OP DIAGNOSIS: Left Knee Osteoarthritis POST-OP DIAGNOSIS: same PROCEDURE: Left Total Knee Replacement SURGEON: Pablo Matt CONTACT [employer] OPERATOR HELPER: Gem Jones ANESTHESIA: regional and spinal ESTIMATED BLOOD LOSS: 200 PATHOLOGY: none sent TOURNIQUET TIME: 31 COMPLICATIONS: Other (Partial thickness laceration to a portion of patellar tendon. ) Patient was transported to: PACU Patient's condition: stable Implants: 1. Depuy Attune Posterior Stabilized Femoral Component, Size 5 2. Depuy Attune Fixed Platform Tibial Component, Size 4 3. Depuy Attune 5x7mm Fixed, Stabilized Poly 4. Depuy Attune Patellar Component, Size 35mm Indications: I have seen Shannon in clinic for symptoms of left knee arthritis, confirmed with radiographic findings. Shannon has exhausted nonoperative methods and was having significant limitations in daily function and desired better function and less pain. I discussed the technical details of a knee replacement. I explained the risks of the procedure to include, but not limited to, bleeding, infection, pain, stiffness, fracture, damage to nerves and vessels, damage to muscles and tendons, loosening, need for repeat procedure, blood clot and cardiopulmonary demise. Despite these risks, Shannon elected to proceed. Findings: There was significant signs of arthritis throughout the knee with notable posterior medial tibial wear and lateral femoral hypoplasia. Procedure Description: Shannon was greeted in the preoperative holding area where the correct side was identified and marked. The consent was reviewed with the patient and signed. The history and physical was updated. All questions were answered. Preoperative mediacations were administered: Acetaminophen 1000mg, Celebrex 400mg, and Gabapentin 300mg. An adductor canal block was then administered by the anesthesia team in the PACU. Shannon was taken back to the operating room. A spinal anesthestic was then administered. The patient was placed into the supine position on the operating room table. A nonsterile tourniquet was placed high onto the leg but only used for cementing. Posts were placed for positioning during the procedure. All bony prominences were well padded. Prophylactic antibiotics in the form of Cefazolin were administered. 1g of Tranxemic Acid was given intravenously within 30 minutes of incision. The left leg was then prepped with Chloraprep and draped in a standard fashion with impervious stockinette and extremity drape. A second prep with Chloraprep was performed prior to placing Ioband. A timeout to confirm correct identity, side and site, procedure, allergies, anesthesia, and medical concerns was performed. With the knee in some flexion, a midline incision was made overlying the knee. Full thickness skin flaps were raised once the extensor mechanism was encountered. These were raised medially and laterally. Any bleeding was controlled with electrocautery. Once the extensor mechanism was fully exposed, a medial parapatellar arthrotomy was performed in a flexed position. All bleeding from the arthrotomy and the geniculate arteries was coagulated. A medial subperiosteal peel was performed with electrocautery to the midcoronal plane. The fat pad was removed while keeping the patellar tendon protected. The anterior distal femur synovium was removed for later visualization. The ACL and PCL were resected and the anterior horn of the lateral meniscus was transected. The knee was then flexed with the patella everted. Large osteophytes from the tibia were removed. Large osteophytes from the femur were removed. Using a step drill, and based on preoperative templating, the femoral canal was entered. This was done with a step drill without any difficulty. The intramedullary distal femoral cut guide was inserted, set to a 5 degree valgus cut and 9mm cut thickness. There was some hypoplasia of the lateral femoral condyle and any remnant cartilage of the medial femoral condyle was removed for appropriate thickness. The distal femoral cut guide was then held in position and pinned. With the soft tissues protected, the distal cut was performed. This was passed over a few times to ensure a planar cut. I then turned attention to the tibia. The extramedullary guide was placed onto the leg. The distal aspect was slid medial to adjust for position of center of ankle and stay in line with shaft of the tibia. Approximately 3-5 degrees of posterior slope was kept in the proximal cutting guide. The center of the guide was aligned with the PCL. The stylus was used to assess cut thickness. The medial side, most involved side, was set for a 6mm cut. This was then held in position and pinned into place with 2 additional pins and a cross pin for stability. The medial and lateral collateral ligaments were protected and the cut was performed. While cutting the anterior most aspect of the lateral tibia there was noted to be some movement of the patella and immediately the saw was withdrawn. There was a partial thickness laceration to the patellar tendon involving less than 50% of the width of the tendon. It was inspected in various positions and had no complete cut through the tendon. The cut was then completed and it was assessed and noted to be of appropriate dimensions. The guide was removed. A spacer block was inserted and the knee was brought into extension. The 6mm spacer block provided full extension, without hyperextension and with stability of both the medial and lateral collateral ligaments was assessed. The pins from the femur and the tibia were then removed. The distal femur was then sized. The anterior stylus was placed onto the lateral ridge of the anterior femur. This indicated a size 5 femur. The external rotation of the guide was adjusted to 3 degrees to match the epicondylar axis, perpendicular to Michael?s line. The 4-in-1 cutting guide was the placed. The posterior medial femur cut was evaluated and appeared of good thickness. The spacer block was inserted underneath the cutting guide and stability was confirmed in 90 degrees of flexion. An juana wing was used to confirm appropriate position of the anterior cut to avoid notching. This cutting guide was ensured to be flush on the cut surface and then pinned into place with headed pins. While protecting the soft tissues, quad tendon, and collateral ligaments, the anterior and posterior cuts were performed with a saw. The central two pins were removed and the posterior and anterior chamfers were cut next. The notch-cutting guide was placed. This was pinned to lateralize the femoral component as much as possible while keeping it flush on the cut surface. This was then pinned into position. A reciprocating saw was used to make the notch cut. A rasp smoothed the cut surfaces. A trial posterior stabilized femoral component was then inserted, impacted down to the cut surfaces, and the lug holes were drilled. A provisional trial tibial component was placed and the knee was brought through range of motion. The polyethylene was trialed until there was good flexion and extension with excellent stability to the medial and lateral collaterals. The patella was tracking without thumbs. The tibial cut surface was fully exposed. The medial and lateral menisci were removed. The tibia was then sized as a 4. The tibia had been previously marked during trialing to correspond to the center of the tibial component to help with rotation. The trial was aligned to this rolanda, approximately rotated to the medial 1/3rd of the tibial tubercle. The trial was pinned into place. The tibia was prepared with a reamer and a keel punch. The knee was then brought into extension and the patella was measured as 21mm. Using the patellar clamp and cut guide, this was resected to a flat surface with at least 13mm of thickness remaining. The size 35mm patella fit the best. This was oriented and then clamped into position. The lugs were drilled. The trial components were removed. The final components, except for the polyethylene were opened on the back table. The periosteal and capsular tissues, especially posteriorly, around the knee were then systematically injected with a periarticular cocktail consisting of 50cc 0.25% Marcaine, 30mg Ketorolac, 20cc of Exparal and 50cc of injectable saline. The tourniquet was then inflated to 275mmHg. The knee was thoroughly irrigated with a pulse lavage and dried. On the back table, with the implants opened, the cement was mixed. 2 batches of antibiotic laden cement were prepared with vacuum assistance. After the cement was ready it was placed on to the back side of the tibial component. A small amount was placed onto the posterior flange of the femur. Cement was manual pressurized and impregnated into the cut surface of the tibia. The tibial component was then inserted into the cut surface and impacted into position. Excess cement was removed and the component was reimpacted. Again, excess cement was removed and our attention was then turned to the femur. The femoral cut surface was once again dried and cement was manually impacted into the cut surface. The femoral component was lined with the lug holes and impacted. Excess cement was removed. It was ensured to be down against the cut surface. The trial polyethylene was then inserted and the leg was brought out into full extension for the duration of the cement curing process, approximately 15min. Cement was lastly manually impacted into the cut surface of the patella and the patellar button was clamped into position and held. During this process attention was turned to the gutters of the knee and for all interfaces for any excess cement. While the cement was hardening, the knee was irrigated with Irrisept chlorhexadine solution. It was allowed to sit in the knee for 3 minutes. After the cement had finally cured, approximately 15min, the clamp was removed from the patella and the knee was taken through range of motion. A size 7mm polyethylene component provided the best range of motion and stability with less than 2mm gapping with medial and lateral stress and full extension without significant hyperextension. The patella was tracking with a no-thumbs technique. The trial poly was removed and once again the knee was checked for any loose, excess, or errant cement. The poly component was then inserted and impacted into position after cleaning and drying the tibial tray. The capsule was then reapproximated with a No. 1 Vicryl at multiple locations. The capsule was finally closed with a No. 2 Stratafix, barbed suture. The tourniquet was then released and the arthrotomy appeared watertight without significant bleeding. The second dosing of 1g TXA was started. Deep tissues were then reapproximated with 0 Vicryl and 2-0 Vicryl. The skin was closed with a running 3-0 Monocryl in a subcuticular fashion. This was reinforced with skin glue. A Mepilex silver dressing was applied along with a [id number] CORDELL wrap. A CryoCuff was applied. Shannon was transferred to the hospital bed without difficulty an suffering no apparent complication. Shannon has a good prognosis. Physical therapy will start today and without restrictions, weight-bearing as tolerated. Aspirin 81mg BID will be used for DVT prophylaxis.
--- NOTE | 2019-06-28 16:22 | PT.INNT ---
Date of service: 06/28/19 Time of Service: 16:22 PT Notes Patient is not yet in med surg unit as of 16:22 PM today. She will be evaluated tomorrow morning for skilled PT services per orthopedic surgeon's referral. Thank you very much for this referral. Nila Carrington PT, DPT, CLT [facility].
[2019-06-28] MEDS: Normal Saline Flush 10 ML SYR IV ×2 (16:55→19:46)
[2019-06-28] MEDS: Aspirin E.C. 81 MG TABEC PO (19:42)
[2019-06-28] MEDS: ceFAZolin 1 GM/50 ML BAG IVPB (19:43)
[2019-06-28] MEDS: Celecoxib 200 MG CAP PO (19:46)
[2019-06-29] MEDS: ceFAZolin 1 GM/50 ML BAG IVPB ×2 (03:55→11:14)
[2019-06-29] MEDS: Lactated Ringers 1,000 ML 80 ML IV (03:56)
[2019-06-29 04:29] VITALS: BP 113/73; PULSE 81; RESP 18; TEMP 36.9; O2SAT 94
[2019-06-29] MEDS: Levothyroxine 50 MCG TAB PO (05:48)
[2019-06-29] MEDS: Loratidine 10 MG TAB PO (06:54)
--- NOTE | 2019-06-29 07:25 | W.PM.DS.N ---
Date of service: 06/29/19 Time of Service: 07:26 DS: Diagnosis Discharge Diagnosis (1) Unilateral primary osteoarthritis, left knee: Status: Acute Discharge Plan Disposition Patient Disposition: HOME Condition: Good Discharge Details Reason For Visit: (L) TOTAL KNEE Admit Date/Time: 06/28/19 08:55 Admit Provider: Pablo Matt Attending Provider: Pablo Matt Primary Care Provider: Mitzy Matias [facility] Hospital Course: Patient was admitted to the medical/surgical floor following the procedure. It was tolerated well without any notable medical, surgical, or anesthetic complications. Mobilization began postoperatively. The youssef catheter was removed and voiding spontaneously. Vitals were stable. Physical therapy worked with the patient and was cleared for discharge home. No acute medical issues. Home Meds and New Rx's Prescriptions: New hydrocodone-acetaminophen 5-325 mg tablet 1 tab PO Q4H PRN (Reason: pain) Qty: 14 RF: 0 Continued magnesium 250 mg tablet 250 mg PO DAILY RF: 0 hydrocortisone 2.5 % cream 1 applic TP QHS PRNRF: 0 ketoconazole 2 % cream 1 applic TP DAILY PRNRF: 0 sjrvvajkbnfg-vgmqmpvs-jylfnp Tablet 1 tab PO DAILY RF: 0 levothyroxine 50 mcg tablet 50 mcg PO DAILY Qty: 90 RF: 4 metronidazole 0.75 % gel 1 applic Topical BID prn Qty: 45 RF: 3 estradiol [Estrace] 0.01 % (0.1 mg/gram) cream 1 gm VG HS PRN Qty: 42.5 RF: 3 epinephrine 0.3 mg/0.3 mL auto-injector 0.3 mg IM ONCE Qty: 2 RF: 1 nystatin 100,000 unit/gram powder 1 applic TP TID Qty: 60 RF: 3 mupirocin 2 % ointment 1 applic TP BID Qty: 30 RF: 0 Bi-pap RF: 0 propranolol 10 MG tablet 10 mg PO BID PRN Qty: 30 RF: 3 loratadine [Claritin] 10 mg Tablet 10 mg PO DAILY RF: 0 celecoxib 200 mg capsule 200 mg PO BID PRN (Reason: pain) Qty: 60 RF: 1 aspirin 81 mg tablet,delayed release (DR/EC) 81 mg PO BID Qty: 60 RF: 0 pantoprazole 40 mg tablet,delayed release (DR/EC) 40 mg PO DAILY Qty: 30 RF: 0 Changed acetaminophen 500 mg tablet 500 mg PO Q6H PRN PRN (Reason: pain) Qty: 60 RF: 3 Discontinued hydrocodone-acetaminophen 5-325 mg tablet 1 tab PO Q6H MDD 20mg PRN (Reason: pain) Qty: 12 RF: 0 Discharge Instructions Additional Instructions: Dr. Matt?s Total Knee Discharge Instructions Activity: The most important activity is to walk. You should try to take short walks a few times a day. It is important that when resting you work on keeping the knee straight. Avoid putting a pillow behind the knee as this will encourage flexion. Work on range of motion exercises as provided by Physical Therapy. - Start outpatient physical therapy within 2 weeks. - You should wear the NATALIA hose on both legs for 2 weeks. Dressing: The initial CORDELL wrap should be removed by post-operative day #2, 06/30/19. The the surgical dressing (Mepilex) in place for at least one week. After the first week it may be removed and replace with light gauze and tape or nothing. It may get wet after 3 days but avoid soaking the dressing. If it gets wet, just lightly pat dry. Medications: - You should take Tylenol and anti-inflammatory Celebrex as your primary pain control medications - You have been prescribed a stronger pain medication Hydrocodone for breakthrough pain, take as needed as prescribed. - You have also been prescribed a stomach acid reduction agent Pantoprozole to help reduce stomach acid and reflux. - You will be taking Aspirin 81mg twice a day for DVT prevention unless instructed otherwise. - If you have constipation you should take Colace or Miralax (both exqw-zyb-qnnfism). It takes most people 3-4 days to have a bowel movement. Follow-up: 2 weeks Referrals: Pablo Matt MD [ [facility] STAFF PHYSICIAN] - Activity:: Activity as Tolerated Equipment/Supplies:: No Equipment Needed Diet:: As Tolerated Discharge Orders Discharge Orders: Discharge Order (Routine); Ordered 06/29/19 Ordered By: Pablo Matt DS: Summary Status at Discharge Functional status at discharge: uses cane/walker Overall status at discharge: patient is progressing back to baseline Mental Status: mental status grossly normal Speech and Movement: speech and movement normal Mood: congruent mood Affect: normal affect Exam Psych Mental Status: mental status grossly normal Speech and Movement: speech and movement normal Mood: congruent mood Affect: normal affect DS: Data Vitals/I&O Vitals and I&O: Vital Signs Temperature 36.9 C 06/29/19 04:29 Temperature Source Tympanic 06/29/19 04:29 Pulse 81 06/29/19 04:29 Pulse Rhythm Regular 06/29/19 03:10 Respiratory Rate 18 06/29/19 04:29 Respiratory Effort Non-Labored 06/29/19 03:10 Respiratory Depth Normal 06/29/19 03:10 Respiratory Pattern Normal 06/29/19 03:10 Blood Pressure 113/73 06/29/19 04:29 Pulse Oximetry 94 L 06/29/19 04:29 Respiratory End-tidal CO2 36 06/28/19 15:54 Oxygen Delivery Method Room Air 06/29/19 04:29 Oxygen Flow Rate 0 06/29/19 04:29 Fraction of Inspired Oxygen (FIO2) 21 06/28/19 22:45 Pain Level 0 06/29/19 04:29 Intake & Output 06/28/19 06/28/19 06/29/19 11:59 23:59 11:59 Intake Total 1730 / 1730 880 / 880 Output Total 1200 / 1200 1999 / 1999 Balance 530 / 530 -1120 / -1120 Weight 88 kg Intake: IV 920 / 920 880 / 880 Oral 810 / 810 Output: Urine 1000 / 1000 1999 Estimated Blood Loss 200 / 200 Other: Urine Color Pale Pale Yellow Yellow Urine Appearance Clear Clear Comment NOT EMPTIED IN PACU <100 CC Emesis Description None PFSH Medical History Allergic rhinitis (Chronic) seasonal; Basal cell carcinoma of back (Resolved) BASAL CELL CANCER ON HER BACK Cardiac arrhythmia (Resolved) PVC'S Cervical pain (neck) (Chronic 05/26/16) Hypothyroidism (Chronic 08/04/12) 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) Obstructive sleep apnea syndrome (Chronic 07/15/07) Bi-PAP Polyp of colon (Chronic) [place] [place] Squamous cell carcinoma (Acute) Face Varicose veins of lower extremity (Chronic) Vitamin D deficiency (Chronic 03/28/18) Surgical History frozen shoulder Right History of local excision of skin lesion (Acute) Paraplanner inner right thigh History of orthopedic surgery (Inactive) Status post arthroscopy of right knee (Acute) Right Status post carpal tunnel release (Inactive) Right Status post right knee replacement (Acute 05/24/19) Family History Mother , 70 Diabetes Essential hypertension Hyperlipidemia Stroke Breast cancer Father , 92 Hyperlipidemia Neoplasm PROSTATE Sister Breast cancer Sister Sleep apnea Essential hypertension Hyperlipidemia Sister Sleep apnea Essential hypertension Celiac disease Brother Sleep apnea Essential hypertension Hyperlipidemia Thyroid disease Maternal Grandfather , 78 Colon cancer Paternal Grandfather , 75 No problems noted. Maternal Grandmother , 78 Diabetes Essential hypertension Breast cancer Paternal Grandmother , 89 No problems noted. Son Essential hypertension Son No problems noted. Son No problems noted. Other Family hx-breast malignancy Social History Smoking/Tobacco Use Status: Never Alcohol Intake: current Alcohol Intake frequency: 0-2 drinks per day Drug use: Never Substance use type: does not use Caregiver/Support person: No Household members: spouse Housing: house Communication Needs: Corrective Lenses Do you need help understanding health information?: Rarely Pets and animals: Yes Pets and animals: dog(s) Sexually active: No Do you think of yourself as: straight/heterosexual Current gender identity: female What is your relationship status?: How often do you talk on the phone with friends or family?: twice per week How often do you get together with friends or relatives?: once per week How often do you attend yazdanism or christianity services?: 1-3 times per year Do you belong to any clubs or organized social groups?: yes Panel score (0-1 are the most socially isolated patients): 3 What type of physical activity do you participate in: walking Duration: 15-30 minutes/day Frequency: 3-4 times per week Silvia/Sabianist: Anabaptist Special silvia needs: No Seatbelt use: always Helmet use: Yes Helmet use: always Drive intox or ride w/intox tank wagon driver: No
[2019-06-29 07:45] VITALS: BP 129/76; PULSE 89; RESP 14; TEMP 36.8; O2SAT 95
--- NOTE | 2019-06-29 08:57 | IN_ITS ---
Date of service: 06/29/19 Time of Service: 08:07 PT Notes Inpatient Physical Therapy Evaluation Date: 06/29/2019 Referring Doctor: Pablo Matt MD PT Orders: PT CONSULT: Status post left TKA Precautions: Fall. Standard. WBAT on left LE Patient Profile/Admitting Diagnosis: Patient is a 68-year-old female who is status post left total knee arthroplasty on POD 1 due to primary unilateral osteoarthritis. PMHX: Medical History (Updated 05/16/19 @ 13:28 by Gem Jones) Allergic rhinitis (Chronic) seasonal; Basal cell carcinoma of back (Resolved) BASAL CELL CANCER ON HER BACK Cardiac arrhythmia (Resolved) PVC'S Cervical pain (neck) (Chronic 05/26/16) Hypothyroidism (Chronic 08/04/12) 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) Obstructive sleep apnea syndrome (Chronic 07/15/07) Bi-PAP Polyp of colon (Chronic) Tubular adenoma [place] [place]28) Squamous cell carcinoma (Acute) Face Varicose veins of lower extremity (Chronic) Vitamin D deficiency (Chronic 03/28/18) Surgical History (Updated 05/16/19 @ 13:28 by Gem Jones) Frozen shoulder Right History of local excision of skin lesion (Acute) 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 She had a R TKA done five weeks ago and has been recovering well. Equipment Owned/DME: F WW, bilateral axillary crutches, SPC Subjective: Patient is agreeable to a PT consult. She denies headache, chest pain, and dizziness throughout PT session. She states that this knee is feeling a lot better than the other one five weeks ago. She states she is doing so well for somebody who has not had any pain pills since last night. She did express wanting to have something to stay on top of the pain before she leaves today. She plans to go back to OP PT as soon as she is advised to do so. Objective: General Observation: Patient seen lying in bed. Cryo/Cuff on left knee. CORDELL wraps on left knee. Mental Status: Alert and oriented x4 Pain: 2/10 at rest 10 with movement ROM: Right Upper Extremity: Shoulder Flexion WFL. Shoulder abduction WFL. Elbow flexion WFL. Wrist flexion WFL. Opening and closing of hand WFL. Left Upper Extremity: Shoulder Flexion WFL. Shoulder abduction WFL. Elbow flexion WFL. Wrist flexion WFL. Opening and closing of hand WFL. Right Lower Extremity: Hip flexion WFL. Hip abduction WFL. Knee flexion 0-110 actively. Knee extension -3 degrees actively. Ankle dorsiflexion WFL. Ankle plantarflexion WFL. Left Lower Extremity: Hip flexion WFL. Hip abduction WFL. Knee flexion 0-75 degrees. Knee extension -22 degrees actively. Ankle dorsiflexion WFL. Ankle plantarflexion WFL. Strength: Right Upper Extremity: Shoulder flexors 5/5. Shoulder abductors 5/5. Elbow flexors 5/5. Elbow extensors 5/5. Vehicle Modification Technician strong. Left Upper Extremity: Shoulder flexors 5/5. Shoulder abductors 5/5. Elbow flexors 5/5. Elbow extensors 5/5. Vehicle Modification Technician strong. Right Lower Extremity: Hip flexors 3-/5. Hip abductors 5/5. Knee flexors 3-/5. Knee extensors 3-/5. Ankle dorsiflexors 5/5. Ankle plantarflexors 5/5. Left Lower Extremity:Hip flexors 3-/5. Hip abductors 5/5. Knee flexors 3-/5. Knee extensors 3-/5. Ankle dorsiflexors 5/5. Ankle plantarflexors 5/5 Sensation: Intact as to pain and pressure on bilateral lower extremities. Bed Mobility/Transfers: Rolling independent Supine to sit independent Sit to supine independent Sit to stand independent Stand to sit independent Bed to chair independent Chair to bed independent Gait: Patient is able to tolerate level surface ambulation of 120 feet with reciprocal gait pattern and symmetric step length and height with 2/10 complaint of pain on the left knee. Patient reports Balance: Static Sitting: Normal Dynamic Sitting: Normal Static Standing: Good Dynamic Standing: Fair Special Tests: Mobility Limitations Standardized Measure [facility] AM-PAC 6 clicks Basic Mobility Inpatient Short Form: Raw Score: 23 CMS Score: 11% deficit Informed Consent/Education: Patient instructed in purpose of PT consult and plan of care. Assessment: Patient is a 68-year-old female who is status post left total knee arthroplasty on POD 1 due to primary unilateral osteoarthritis. She is highly motivated and is cooperative. Her prognosis for regaining her prior level of function is very good. She has a good supportive who can assist with meal preparation house chores and laundry while she is recovering. Patient presents with clinical signs and symptoms consistent with current/admitting diagnoses that have resulted to mobility limitations, gait instability, generalized weakness, and impairment of motor control as demonstrated by the following impairment level findings: 1. Decreased strength to B LE major muscle groups 2. Impaired standing balance 3. Impaired activity tolerance 4. Limitation of joint range of motion in the knees Impairments are contributing to the following functional limitations: 1. Inability to safely ambulate without assistive device and physical assistance 2. Increase completion time for mobility ADL performance 3. Increased fall risk Patient is assessed as a 73138 moderate complexity based on the following: History: Patient is a 68-year-old female who is status post left total knee arthroplasty on POD 1 due to primary unilateral osteoarthritis. Examination: Demonstrable impairment in strength, balance, and range of motion with underlying impairments and functional limitations as documented above Presentation:Evolving Decision Makin moderate complexity Goals: Goals X1 week 1. Supine-Sit independent 2. Sit-Supine independent 3. Sit-Stand independent 4. Stand-Sit independent 5. Bed-Chair independent 6. Chair-Bed independent 7. Independent gait on level surface with use of least restrictive device for at least 300 feet without report of pain nor dyspnea 8. Independent stair negotiation while holding onto bilateral rails for at least 5 steps without report of pain nor dyspnea 9. Independent with home exercise program 10. Good static and dynamic standing balance/tolerance Plan of Care/Treatment Plan: 1-2x/day, 7 days/week x 1 week. Plan of care has been reviewed with the BUSINESS CONTINUITY CONSULTANT providing the service under Physical Therapy direction. Initiate Physical Therapy intervention for strengthening, bed mobility, transfers, gait, stairs, balance training, use of assistive device. DISCHARGE RECOMMENDATIONS: May go home with once medically cleared. May benefit from skilled physical therapy services according to orthopedic surgeon's timeline recommendations. Patient will be educated and trained on home exercise program per TKA exercise protocol in preparation for outpatient physical therapy services. TREATMENT CODE/TIME: 9716 2 x 31 minutes beginning at 8:07 AM. Thank you very much for this referral. Nila Carrington PT, DPT, CLT [facility]
[2019-06-29] MEDS: Acetaminophen 500 MG TAB 1000 MG PO (09:04)
[2019-06-29] MEDS: Magnesium Gluconate 500 MG TAB 250 MG PO (09:05)
[2019-06-29] MEDS: Aspirin E.C. 81 MG TABEC PO (09:05)
[2019-06-29] MEDS: Pantoprazole 40 MG TABCR PO (09:06)
[2019-06-29] MEDS: Celecoxib 200 MG CAP PO (09:15)
[2019-06-29 11:07] VITALS: RESP 12
[2019-06-29] MEDS: Normal Saline Flush 10 ML SYR IV (11:14)
== END 2019-06-29 12:42 | disposition home or self-care (01) | DRG 470 ==
LOC: PDS 08:56 → MS 15:55
PROVIDERS: Admitting Provider Student in an Organized Health Care Education/Training Program; PCP Family Medicine; Visit Provider Student in an Organized Health Care Education/Training Program
PROC: 0SRD0J9 Replacement of Left Knee Joint with Synthetic Substitute, Cemented, Open Approach (ICD-10-PCS; CPT 27447; principal; 2019-06-28 12:30)
PROC: 0SRD0J9 Replacement of Left Knee Joint with Synthetic Substitute, Cemented, Open Approach (ICD-10-PCS; CPT 27570; 2019-06-28 12:30)
DX: M17.12 Unilateral primary osteoarthritis, left knee (principal); M25.562 Pain in left knee; Z96.653 Presence of artificial knee joint, bilateral; G47.33 Obstructive sleep apnea (adult) (pediatric); E03.9 Hypothyroidism, unspecified; Z86.14 Personal history of Methicillin resistant Staphylococcus aureus infection
CPT/HCPCS: 27447; 76942; 97162; NC; J0690; J1100; J1885; J2250; J2405

== ENCOUNTER 2019-07-17 10:33 | Outpatient (CLI) | payer MEDICARE, BC, SELFPAY ==
--- NOTE | 2019-07-17 10:29 | DI.RAD_ITS ---
EXAM: XR KNEE LT 1V and standing alignment INDICATION: f/u L TKA. COMPARISON: XR STANDING ALIGNMENT from 06/08/2019 XR KNEE RT 1V from 06/08/2019 TECHNIQUE: 2D digital imaging was performed. FINDINGS: The patient is now status post left total knee replacement. The orthopedic hardware is in good posit ion. The soft tissues are unremarkable. There is again seen a right total knee replacement. The right lower extremity measures 84.2 centimeters. The left lower extremity measures 86 centimeter s. IMPRESSION: Status post left TKR.
== END 2019-07-17 10:53 ==
PROVIDERS: PCP Family Medicine; Referring Provider Family Medicine; Visit Provider Student in an Organized Health Care Education/Training Program
DX: Z96.653 Presence of artificial knee joint, bilateral (principal); Z47.1 Aftercare following joint replacement surgery; M21.70 Unequal limb length (acquired), unspecified site; M17.12 Unilateral primary osteoarthritis, left knee
CPT/HCPCS: 73560; 77073

== ENCOUNTER → 2019-08-14 08:44 | Outpatient (BNVA) | payer MEDICARE, BC, SELFPAY | PROVIDERS: PCP Family Medicine; Referring Provider Family Medicine; Visit Provider Student in an Organized Health Care Education/Training Program | DX: Z96.652 Presence of left artificial knee joint (principal); Z47.1 Aftercare following joint replacement surgery; T84.89XD Other specified complication of internal orthopedic prosthetic devices, implants and grafts, subsequent encounter ==

== ENCOUNTER 2019-08-29 06:06 | Day surgery (SDC) | payer MEDICARE, BC, SELFPAY ==
[2019-08-29 06:32] VITALS: BP 145/99; PULSE 72; RESP 18; TEMP 36.3; O2SAT 96
[2019-08-29] MEDS: Lactated Ringers 1,000 ML 80 ML IV (06:50)
--- NOTE | 2019-08-29 07:07 | PDOC.DSDIS_ITS ---
Discharge Plan Disposition Patient Disposition: HOME Condition: Good Discharge Details Reason For Visit: Left Knee Manipulation Attending Provider: Pablo Matt Primary Care Provider: Mitzy Matias Home Meds and New Rx's Prescriptions: New hydromorphone 2 mg tablet 2 mg PO Q6H PRN PRN (Reason: pain) Qty: 8 RF: 0 ibuprofen 600 mg tablet 600 mg PO TID PRNQty: 60 RF: 3 Continued magnesium 250 mg tablet 250 mg PO DAILY RF: 0 hydrocortisone 2.5 % cream 1 applic TP QHS PRNRF: 0 ketoconazole 2 % cream 1 applic TP DAILY PRNRF: 0 [id number]-tjankvvo-tvcbrp Tablet 1 tab PO DAILY RF: 0 levothyroxine 50 mcg tablet 50 mcg PO DAILY Qty: 90 RF: 4 metronidazole 0.75 % gel 1 applic Topical BID prn Qty: 45 RF: 3 estradiol [Estrace] 0.01 % (0.1 mg/gram) cream 1 gm VG HS PRN Qty: 42.5 RF: 3 epinephrine 0.3 mg/0.3 mL auto-injector 0.3 mg IM ONCE Qty: 2 RF: 1 nystatin 100,000 unit/gram powder 1 applic TP TID Qty: 60 RF: 3 Bi-pap RF: 0 propranolol 10 MG tablet 10 mg PO BID PRN Qty: 30 RF: 3 loratadine [Claritin] 10 mg Tablet 10 mg PO DAILY RF: 0 acetaminophen 500 mg tablet 500 mg PO Q6H PRN PRN (Reason: pain) Qty: 60 RF: 3 Discontinued ibuprofen [Advil] 200 mg Tablet 400 mg PO BID RF: 0 Discharge Instructions Additional Instructions: Activity: You should begin moving as soon as possible. You may work on flexion but also equally maintain extension. You may bear weight as tolerated, using crutches only for support/comfort. You should apply ice to help with swelling and elevate when possible (especially in the first few days). Medications: - Rarely does this require any stronger pain medications but it may in the first few days. You have been prescribed Hydromorphone. - Recommend to take up to 1000mg of Acetaminophen (Tylenol) and 600mg of Ibuprofen (Advil) every 8 hours as needed. These larger strength tablets were called in but you also may use [id number]. - Apply ice to help with pain. Follow-up: You should start physical therapy tomorrow. You will follow-up with Dr. Matt in 10-14 days. Referrals: Pablo Matt MD [ [facility] STAFF PHYSICIAN] - Activity:: Activity as Tolerated Remove Dressings/Wound Care:: 24 hours Shower/Bathe:: 24 hours Diet:: As Tolerated Discharge Orders Discharge Orders: Discharge Order (Routine); Ordered 08/29/19 Ordered By: Pablo Matt DS: Diagnosis Discharge Diagnosis (1) Postoperative stiffness of total knee replacement: Status: Acute
[2019-08-29] MEDS: Bupivacaine 0.5% Pres-Free 30 ML VIAL (07:30)
[2019-08-29 07:41] VITALS: BP 158/78; PULSE 64; RESP 22; TEMP 36.7; O2SAT 95
[2019-08-29 07:46] VITALS: BP 152/84; PULSE 59; RESP 12; TEMP 36.7; O2SAT 95
--- NOTE | 2019-08-29 07:47 | W.PM.OP ---
Date of service: 08/29/19 Time of Service: 07:47 Operative Note Operative Note DATE OF PROCEDURE: 08/29/19 PRE-OP DIAGNOSIS: Left knee Arthrofibrosis s/p Replacement POST-OP DIAGNOSIS: same PROCEDURE: Left Knee Manipulation Under Anesthesia SURGEON: Pablo Matt ANESTHESIA: JANIE ESTIMATED BLOOD LOSS: 0 PATHOLOGY: none sent TOURNIQUET TIME: 0 COMPLICATIONS: None Patient was transported to: PACU Patient's condition: stable Indications: Shannon is a 68-year-old female who is s/p knee replacement. Despite diligent work with physical therapy there has been continued stiffness. To assist with mobility, I offered a manipulation under anesthesia. I discussed the risks of the procedure to include bleeding, pain, recurrent stiffness, fracture. Despite these risks, Shannon elects to proceed. Findings: Preoperative flexion = 105 Postoperative flexion = 130 Preoperative extension = 5 Postoperative extension = 5 Procedure Description: The patient is agreed in the preoperative holding area. Identity was confirmed and the correct side was identified and marked. The consent was reviewed the patient and signed. History and physical was updated. Shannon was taken back to the operating room. The left side was identified as the correct side. A timeout was performed for safe surgery. A general anesthetic was administered. The knee was then prepped with ChloraPrep and an intra-articular injection of 10 cc of 0.5% bupivacaine was administered. Once a muscle relaxant was fully on board manipulation was performed. Pre-manipulation range of motion was noted. A gentle manipulation was performed first into flexion using a very small lever arm and adding gentle and progressive pressure to the tibia. There is audible and palpable crepitus with improvement in range of motion. This was cycled and repeated multiple times. The leg was then brought into extension and gentle anterior posterior pressure was applied with a supported hand behind the proximal tibia and knee. This was brought back into flexion was once again manipulated with gentle and progressive pressure. Final range of motion numbers were recorded. A Band-Aid was applied to the injection site. She was awakened from anesthesia and taken to the PACU in stable condition suffering no complications.
[2019-08-29 07:51] VITALS: BP 152/84; PULSE 55; RESP 14; TEMP 36.7; O2SAT 97
[2019-08-29] MEDS: fentaNYL 100 MCG/2 ML VIAL IVP (08:00)
[2019-08-29 08:06] VITALS: BP 154/80; PULSE 57; RESP 12; TEMP 36.7; O2SAT 96
[2019-08-29 08:41] VITALS: BP 140/86; PULSE 59; RESP 16; TEMP 36.2; O2SAT 94
== END 2019-08-29 09:04 | disposition home or self-care (01) ==
PROVIDERS: PCP Family Medicine; Visit Provider Student in an Organized Health Care Education/Training Program
PROC: (CPT 27570; principal; 2019-08-29 07:30)
DX: T84.82XA Fibrosis due to internal orthopedic prosthetic devices, implants and grafts, initial encounter (principal); Z96.652 Presence of left artificial knee joint; M25.662 Stiffness of left knee, not elsewhere classified
CPT/HCPCS: 27570; J1885; J2001; J2405; J2704; J3010

== ENCOUNTER → 2019-09-11 13:23 | Outpatient (BNVA) | payer MEDICARE, BC, SELFPAY | PROVIDERS: PCP Family Medicine; Referring Provider Family Medicine; Visit Provider Student in an Organized Health Care Education/Training Program | DX: Z47.1 Aftercare following joint replacement surgery (principal); Z96.653 Presence of artificial knee joint, bilateral; T84.89XA Other specified complication of internal orthopedic prosthetic devices, implants and grafts, initial encounter ==

== ENCOUNTER → 2019-10-09 14:05 | Outpatient (BNVA) | payer MEDICARE, BC, SELFPAY | PROVIDERS: PCP Family Medicine; Referring Provider Family Medicine; Visit Provider Student in an Organized Health Care Education/Training Program | DX: Z47.1 Aftercare following joint replacement surgery (principal); Z96.652 Presence of left artificial knee joint ==

== ENCOUNTER 2020-04-02 03:47 | Outpatient (CLI) | payer MEDICARE, BC, SELFPAY ==
[2020-04-02 12:51] LABS: ALT 35 U/L (14-59); AST 19 U/L (15-37); Albumin 4.1 g/dL (3.4-5.0); Alkaline Phosphatase 68 U/L (46-116); Anion Gap 8.1 mmol/L (3-11); BUN 16 mg/dL (7-18); Bilirubin, Total 0.5 mg/dL (0.2-1.0); CO2 29.9 mmol/L (21.0-32.0); CREATININE 0.79 mg/dL (0.55-1.02); Chloride 105 mmol/L (98-107); Glucose 111 mg/dL (74-106); Magnesium 2.1 mg/dL (1.8-2.4); Potassium 4.3 mmol/L (3.5-5.1); Sodium 143 mmol/L (136-145); Total Protein 7.3 g/dL (6.4-8.2)
[2020-04-04 04:54] LABS: Vitamin D 25 Total 41.5 ng/ml (30-100)
== END 2020-04-02 04:07 ==
PROVIDERS: PCP Family Medicine; Visit Provider Family Medicine
DX: E03.9 Hypothyroidism, unspecified (principal); I10 Essential (primary) hypertension; E55.9 Vitamin D deficiency, unspecified; E87.8 Other disorders of electrolyte and fluid balance, not elsewhere classified
CPT/HCPCS: 36415; 80053; 82306; 83735; 84443

== ENCOUNTER 2020-04-15 04:55 | Outpatient (CLI) | payer MEDICARE, BC, SELFPAY ==
[2020-04-15 12:36] LABS: Hemoglobin A1C 5.9 % (<5.7)
[2020-04-15 12:42] LABS: Calculated LDL 149 mg/dL (<100); Cholesterol 231 mg/dL (<200); HDL Cholesterol 63 mg/dL (40-60); Triglyceride 98 mg/dL (<150)
== END 2020-04-15 05:15 ==
PROVIDERS: PCP Family Medicine; Visit Provider Family Medicine
DX: E11.9 Type 2 diabetes mellitus without complications (principal)
CPT/HCPCS: 36415; 80061; 83036

== ENCOUNTER 2020-06-06 02:11 | Outpatient (CLI) | payer MEDICARE, BC, SELFPAY ==
--- NOTE | 2020-06-06 07:45 | DI.DEXA_ITS ---
EXAM: XR DEXA BONE DENSITY W/WO ODETTE CLINICAL HISTORY: osteoporosis,M81.0 TECHNIQUE: [employer] C densitometer COMPARISON: No exams were available for comparison FINDINGS: Lateral view of the thoracic and lumbar spine shows no evidence of compression fractures. The bone m ineral density measurements of the lumbar spine correspond to a total T-score of -0.5, in the normal range. The bone mineral density measurements of the left hip correspond to a total T-score of -0.5 a nd a femoral neck T-score of -1.5, consistent with osteopenia. The bone mineral density measurements of the left forearm correspond to a T-score of the distal 3rd of -1.8, consistent with osteopenia. IMPRESSION: Normal bone mineral density of the lumbar spine. Osteopenia of the left forearm and left hip.
--- NOTE | 2020-06-06 14:17 | DI.MAMMO_ITS ---
EXAM: MAMMO SCREENING CLINICAL HISTORY: screening,Z12.39 TECHNIQUE: Mammograms were interpreted according to the usual protocol including computer analysis w [facility] CAD system, tomosynthesis and C-view imaging. COMPARISON: 2015 through 2018 FINDINGS: The breasts are composed of mainly fatty density , Breast Density category A. No suspicious masses or suspicious microcalcifications are seen. Mild vascular calcifications are in cidentally noted. No skin thickening or abnormal axillary lymph nodes are seen. There has been no significant change from prior exams. IMPRESSION: BI-RADS Category 1, Negative mammogram Yearly screening mammography is recommended. Breast Density - Category A, fatty density. A negative radiographic report should not delay biopsy if a dominant or clinically suspicious mass is present. Up to ten percent of cancers are not identified on mammography. A negative report may reinforce clinical impression. Adenosis and dense breasts may obscure an underlying neoplasm. False positive reports average 6 to 10%. Patient will receive a letter notifying them of these results.
== END 2020-06-06 02:31 ==
PROVIDERS: PCP Family Medicine; Visit Provider Family Medicine
DX: Z12.31 Encounter for screening mammogram for malignant neoplasm of breast (principal); M85.89 Other specified disorders of bone density and structure, multiple sites; M81.0 Age-related osteoporosis without current pathological fracture
CPT/HCPCS: 77063; 77067; 77080

== ENCOUNTER 2020-07-01 10:28 | Outpatient (CLI) | payer MEDICARE, BC, SELFPAY ==
--- NOTE | 2020-07-01 09:00 | DI.RAD_ITS ---
EXAM: XR KNEE LT 2V AP,LAT CLINICAL HISTORY: annual f/u. TECHNIQUE: 2D digital imaging was performed. COMPARISON: CR XR STANDING ALIGNMENT from 07/17/2019 CR XR KNEE RT 2V AP,LAT from 07/01/2020 FINDINGS: BONES: There are stable post operative changes present. No fracture or dislocation. JOINTS: The joint spaces are well maintained. No joint effusion is present. SOFT TISSUE: Normal. IMPRESSION: Stable postoperative changes. DATA REPOSITORY: RADIATION DOSE DELIVERED:
--- NOTE | 2020-07-01 09:30 | DI.RAD_ITS ---
EXAM: XR KNEE RT 2V AP,LAT CLINICAL HISTORY: s/p right TKA. TECHNIQUE: 2D digital imaging was performed. COMPARISON: CR XR knee LT 3V AP,lat,dion from 02/24/2019 CR XR KNEE RT 1V from 06/08/2019 FINDINGS: BONES: There are stable post operative changes present. No fracture or dislocation. JOINTS: The joint spaces are well maintained. Small joint effusion. SOFT TISSUE: Normal. IMPRESSION: Stable postoperative changes. DATA REPOSITORY: RADIATION DOSE DELIVERED:
== END 2020-07-01 10:48 ==
PROVIDERS: PCP Family Medicine; Visit Provider Student in an Organized Health Care Education/Training Program
DX: Z47.1 Aftercare following joint replacement surgery; Z96.652 Presence of left artificial knee joint; Z96.651 Presence of right artificial knee joint; T84.89XA Other specified complication of internal orthopedic prosthetic devices, implants and grafts, initial encounter; M25.662 Stiffness of left knee, not elsewhere classified
CPT/HCPCS: 99213; 73560

== ENCOUNTER → 2020-10-07 08:58 | Outpatient (BNVA) | payer MEDICARE, BC, SELFPAY | PROVIDERS: PCP Family Medicine; Referring Provider Family Medicine; Visit Provider Student in an Organized Health Care Education/Training Program | DX: Z47.1 Aftercare following joint replacement surgery (principal); Z96.652 Presence of left artificial knee joint; Z96.651 Presence of right artificial knee joint; M70.62 Trochanteric bursitis, left hip; M70.52 Other bursitis of knee, left knee | CPT/HCPCS: 99213 ==

== ENCOUNTER 2021-04-04 02:06 | Outpatient (CLI) | payer MEDICARE, BC, SELFPAY ==
[2021-04-04 12:27] LABS: ALT 27 U/L (14-59); AST 18 U/L (15-37); Albumin 3.9 g/dL (3.4-5.0); Alkaline Phosphatase 67 U/L (46-116); Anion Gap 9.3 mmol/L (3-11); BUN 19 mg/dL (7-18); Bilirubin, Total 0.5 mg/dL (0.2-1.0); CO2 28.7 mmol/L (21.0-32.0); CREATININE 0.9 mg/dL (0.55-1.02); Calcium 8.7 mg/dL (8.5-10.1); Chloride 105 mmol/L (98-107); Glucose 92 mg/dL (74-106); Potassium 3.7 mmol/L (3.5-5.1); Sodium 143 mmol/L (136-145); TSH (W/Ref FT4) 1.58 uIU/mL (0.36-3.74); Total Protein 6.9 g/dL (6.4-8.2)
== END 2021-04-04 02:07 | disposition home or self-care (01) ==
LOC: LOS 02:06
PROVIDERS: PCP Family Medicine; Visit Provider Family Medicine
DX: I10 Essential (primary) hypertension (principal); E03.9 Hypothyroidism, unspecified
CPT/HCPCS: 36415; 80053; 84443

== ENCOUNTER 2021-07-14 01:25 | Outpatient (CLI) | payer MEDICARE, BC, SELFPAY ==
--- NOTE | 2021-07-14 06:30 | DI.MAMMO_ITS ---
Exam(s) MAMMO SCREENING EXAM: MAMMO SCREENING CLINICAL HISTORY: screening,z12.39. TECHNIQUE: Bilateral full field digital CC and MLO mammographic images were obtained with 3D tomosyn thesis and utilizing computer aided detection (CAD). COMPARISON: Prior mammograms dating back to 2015, the most recent being May 2020. Family history. Her sister was diagnosed with breast cancer in her 50s. FINDINGS: Small benign-appearing microcalcification group posteriorly in the left breast is unchanged from prio r studies. There are no new spiculated masses nor malignant appearing microcalcification groups. Skin mole medially in the right breast is again noted There is no significant architectural distortion nor skin thickening-retraction. IMPRESSION: No radiographic evidence of malignancy. BI-RADS Category 1 - Negative Breast Density - Category A - Almost entirely fatty Breast density Category C or D implies that the patient has dense breast tissue. Dense breast tissue can make it harder to find cancer on a mammogram. Dense breast tissue is also associated with an incr eased risk of breast cancer. This information about the result of the mammogram report was provided to the patient to raise their awareness. Use this report when you speak with the patient about their risks for breast cancer, which includes their family history. At that time, you may recommend additional screening tests (Ultrasoun d or MRI) as these tests may add significant information. A negative radiographic report should not delay biopsy if a dominant or clinically suspicious mass is present. Up to ten percent of cancers are not identified on mammography. A negative report may reinforce clinical impression. Adenosis and dense breasts may obscure an underlying neoplasm. False positive reports average 6 to 10%. Patient will receive a letter notifying them of these results.
== END 2021-07-14 01:45 ==
PROVIDERS: PCP Family Medicine; Visit Provider Family Medicine
DX: Z12.31 Encounter for screening mammogram for malignant neoplasm of breast (principal); R92.0 Mammographic microcalcification found on diagnostic imaging of breast
CPT/HCPCS: 77063; 77067

== ENCOUNTER 2021-10-14 11:05 | Outpatient (CLI) | payer MEDICARE, SELFPAY ==
--- NOTE | 2021-10-14 11:00 | RT.EKG_ITS ---
APPROVED REPORT Exam: Resting ECG Reason for Exam: chest discomfort Patient Location: O HR:63 bpm ECG Measurements Heart Rate 63 AXIS AZ 179 P 68 QRSd 83 QRS 52 QT 404 T 48 QTc 413 Conclusion Sinus rhythm...normal P axis, V-rate 60- 99 Probable left atrial enlargement...P >50mS, <-0.10mV V1 Otherwise normal
== END 2021-10-14 11:06 | disposition home or self-care (01) ==
LOC: DI.CM 11:06
PROVIDERS: PCP Family Medicine; Visit Provider Family Medicine
DX: R07.89 Other chest pain (principal)
CPT/HCPCS: 93010

== ENCOUNTER 2021-10-21 04:00 | Outpatient (CLI) | payer MEDICARE, SELFPAY ==
[2021-10-21 09:29] LABS: HCT 38.6 % (36.0-46.0); HGB 12.9 g/dL (11.2-15.7); MCH 30.1 pg (27.0-33.0); MCHC 33.4 % (32.0-36.0); MCV 90.2 fL (80-95); MPV 10.5 fL (8.0-11.0); Platelet Count 204 10^3/uL (130-400); RBC 4.28 10^6/uL (3.93-5.22); RDW 12.2 % (11.7-14.6); RDW-SD 40.2 fL; WBC 4.35 10^3/uL (4.4-10.8)
[2021-10-21 10:38] LABS: ALT 27 U/L (14-59); AST 14 U/L (15-37); Albumin 3.8 g/dL (3.4-5.0); Alkaline Phosphatase 66 U/L (46-116); Anion Gap 10.2 mmol/L (3-11); BUN 20 mg/dL (7-18); Bilirubin, Total 0.5 mg/dL (0.2-1.0); CO2 25.8 mmol/L (21.0-32.0); CREATININE 0.8 mg/dL (0.55-1.02); Calcium 9.1 mg/dL (8.5-10.1); Calculated LDL 144 mg/dL (<100); Chloride 105 mmol/L (98-107); Cholesterol 231 mg/dL (<200); Glucose 105 mg/dL (74-106); HDL Cholesterol 60 mg/dL (40-60); Magnesium 2.1 mg/dL (1.8-2.4); Potassium 4.1 mmol/L (3.5-5.1); Sodium 141 mmol/L (136-145); TSH (W/Ref FT4) 1.64 uIU/mL (0.36-3.74); Triglyceride 138 mg/dL (<150)
== END 2021-10-21 04:01 | disposition home or self-care (01) ==
LOC: LBO 04:01
PROVIDERS: PCP Family Medicine; Visit Provider Family Medicine
DX: E03.9 Hypothyroidism, unspecified (principal); R07.89 Other chest pain; R00.2 Palpitations
CPT/HCPCS: 36415; 80053; 80061; 85027; 83735; 84443

== ENCOUNTER 2021-10-21 04:40 | Outpatient (RCR) | payer MEDICARE, SELFPAY ==
--- NOTE | 2021-10-21 09:00 | HOLTER_ITS ---
APPROVED REPORT Conclusion This is a 48-hour Holter monitor ordered for palpitations Predominant rhythm was sinus. Average heart rate was 64. Minimum was 49, maximum 97 A total of 62 isolated premature ventricular contractions were recorded 22 isolated premature atrial contractions were seen There was no atrial fibrillation, no high-grade AV block, no pauses greater than 3 seconds Patient symptoms appeared to correspond to isolated PVCs
== END 2021-11-13 23:59 | disposition home or self-care (01) ==
LOC: RT 04:40
PROVIDERS: PCP Family Medicine; Visit Provider Family Medicine
DX: R00.2 Palpitations (principal); I49.3 Ventricular premature depolarization; I49.1 Atrial premature depolarization
CPT/HCPCS: 93227; 93225; 93226

== ENCOUNTER 2022-02-28 13:01 | Emergency (ER) | payer MEDICARE, SELFPAY ==
[2022-02-28] VITALS (22 sets, daily range): BP systolic 122–155; BP diastolic 63–115; PULSE 44–84; RESP 0–23; O2SAT 94–100
--- NOTE | 2022-02-28 13:15 | DI.RAD_ITS ---
Exam(s) XR SHOULDER LT COMPLETE 2+V EXAM: XR SHOULDER LT COMPLETE 2+V CLINICAL HISTORY: fall/pain. TECHNIQUE: 2D digital imaging was performed. COMPARISON: CR RIGHT SHOULDER COMPLETE from 07/22/2010 FINDINGS: 3 views There is anterior inferior dislocation of the humeral head relative to the glenoid fossa. There is b oth Bankart fracture of the osseous glenoid as well as Hill-Sachs deformity on the posterior aspect o f the humeral head. No radiopaque foreign body. No ominous osseous lesions. IMPRESSION: DATA REPOSITORY: RADIATION DOSE DELIVERED:
--- NOTE | 2022-02-28 13:20 | ED.GENADUL_ITS ---
Discharge Plan Disposition Patient Disposition: HOME Condition: Improving Discharge Details Clinical Impression: Anterior dislocation of left shoulder, Shoulder fracture, left Primary Care Provider: Mitzy Matias ED Provider: Jose Sr Home Meds and New Rx's Prescriptions: New hydrocodone-acetaminophen 5-325 mg tablet 1 tab PO Q8H PRNQty: 8 0RF Continued magnesium 250 mg tablet 250 mg PO DAILY [id number] Tablet 1 tab PO DAILY epinephrine 0.3 mg/0.3 mL auto-injector 0.3 mg IM ONCE Qty: 2 1RF Rx Instructions: PRN FOR ANAPHYLAXIS cholecalciferol (vitamin D3) 25 mcg (1,000 unit) capsule 25 mcg PO .every other day estradiol [Estrace] 0.01 % (0.1 mg/gram) cream 1 g VG HS PRN Qty: 42.5 3RF levothyroxine 50 mcg tablet 50 mcg PO DAILY Qty: 90 4RF losartan 100 mg tablet 100 mg PO DAILY Qty: 90 4RF ivermectin 1 % cream 1 applic topical DAILY Qty: 45 4RF loratadine 10 mg tablet 10 mg PO DAILY Bi-pap 0RF Discharge Instructions Instructions: Shoulder Dislocation (ED) Additional Instructions: Shoulder was reduced without difficulty. Wear sling until reevaluation with ort hopedics. Rest, elevate, cool compresses every 2 hours for 20 minutes. I have provided you with a prescription and a take-home pack of short-term analgesia, this medication may cause drowsiness and constipation. You may want to take [id number]-[id number] stool softener while taking this medication. Please watch for new or worsening symptoms and return to the ER for any concerns. I have placed you on the orthopedic list, please call the office of Dr. Matt first thing Wednesday morning to discuss your ER visit and need for outpatient reevaluation Referrals: Pablo Matt MD [ [facility] STAFF PHYSICIAN] - Discharge Data Discharge Date/Time-TO BE ENTERED AT DEPARTURE: 02/28/22 17:35 Medical Decision Making <TONE Hurt - Last Filed: 03/01/22 08:26> 71-year-old female not anticoagulated, [id number], presents for left shoulder injury status post mechanical slip and fall. There is an anterior shoulder deformity, concern for fracture versus dislocation, versus both. We will give 4 IM morphine and obtain x-ray. Denies any other injury, no obvious distracting injuries upon evaluation. IM morphine provided, no relief. Obtained IV access and given 1 mg IV Dilaudid. X-ray reveals anterior dislocation with evidence of a Bankart as well as a Hill-Sachs deformity Case discussed with orthopedics, Dr. Anderson. Recommends reduction here in the ER performed by ER staff and then post reduction CT imaging and outpatient orthopedic follow-up Sedation and reduction performed with Dr. Florez. Reduction performed without complication. Patient observed until full recovery from the consultation. Sling was applied. Postreduction x-ray obtained, successful reduction. CT obtained at the request of orthopedics. We will not make the patient wait for the results as this will not change the outcome here in the ER but will be more beneficial in the outpatient setting. I will provide a take-home packet of hydrocodone as well as a short-term prescription of analgesia. Patient placed on the orthopedic list to help expedite outpatient orthopedic follow-up care. Patient remains neuro, vascular, tendon intact status post reduction and splint application as examined by me Standard discharge and return precautions were provided. Patient understands, is agreeable to this plan, and has no additional questions or concerns upon discharge. This documentation was generated using [employer] dictation system, please disregard any oddities of phrase or misspellings. Medical Records Medical records reviewed: Yes I reviewed the patient's medical records. Imaging Data Radiologic Study: Attestation: I personally reviewed and interpreted this imaging study as follows: Imaging: X-Ray Radiologist's impression: PROCEDURE INFORMATION: Exam: XR Left Shoulder Exam date and time: 02/28/2022 2:06 PM Age: 71 years old Clinical indication: Pain; Shoulder; Left; Patient HX: Fall TECHNIQUE: Imaging protocol: Radiologic exam of the Left shoulder. Views: 2 or more views. COMPARISON: No relevant prior studies available. FINDINGS: Bones/joints: There is anterior dislocation of the left shoulder at the glenohumeral joint. There is evidence of Bankart fracture as well as Hill-Sachs deformity. The adjacent chest clavicle and scapula are unremarkable. Soft tissues: There is soft tissue swelling left shoulder with deformity at the shoulder joint. No evidence radiopaque foreign body. IMPRESSION: There is anterior dislocation of the left shoulder at the glenohumeral joint. There is evidence of Bankart fracture as well as Hill-Sachs deformity. Radiologic Study #2: Attestation: I personally reviewed and interpreted this imaging study as follows: Imaging: X-Ray Radiologist's impression: PROCEDURE INFORMATION: Exam: XR Left Shoulder Exam date and time: 02/28/2022 3:57 PM Age: 71 years old Clinical indication: Screening exam; Patient HX: Post reduction of L shoulder TECHNIQUE: Imaging protocol: Radiologic exam of the Left shoulder. Views: 2 or more views. COMPARISON: CR XR SHOULDER LT COMPLETE 2+V 28/02/2022 14:06 FINDINGS: Bones/joints: Post reduction view of shoulder. The CT findings of Bankart fracture and Hill-Sachs deformity are not appreciated on the plain films. Soft tissues: Unremarkable. IMPRESSION: Post reduction left shoulder. HPI <TONE Hurt - Last Filed: 03/01/22 08:26> General Mode of arrival: ambulatory . Date/Time Provider Initiated Documentation: 02/28/22 13:19 . Limitations to Documentation: no limitations . Information obtained by: patient and family . History of Present Illness 71 year old F presents to the emergency department with the chief complaint of L shoulder pain, described as severe, with intensity rated at 10. Quality is described as burning, and is localized to the left and upper extremity. Patient reports no radiation. Patient started experiencing this minute(s) (30) and it has been constant. No relieving factors improve symptom(s), Movement worsens symptoms . Patient notes no other symptoms.. Patient did receive the following treatments prior to arrival, none Related Data Home Medications Medication Instructions Recorded Confirmed magnesium 250 mg tablet 250 mg PO DAILY 04/03/19 02/28/22 pjocbwjmhyap-sedomiey-tgjrtd tablet 1 tab PO DAILY 04/03/19 02/28/22 epinephrine 0.3 mg/0.3 mL 0.3 mg (0.3 mL) IM ONCE ##2 04/08/20 02/28/22 injection, auto-injector cholecalciferol (vitamin D3) 25 25 mcg PO .every other day 04/10/21 11/04/21 mcg (1,000 unit) capsule estradiol 0.01% (0.1 mg/gram) 1 g vaginal HS PRN #42.5 grams 04/10/21 02/28/22 vaginal cream (Estrace) ivermectin 1 % topical cream 1 applic topical DAILY #45 grams 04/10/21 02/28/22 levothyroxine 50 mcg tablet 50 mcg PO DAILY #90 tab-caps 04/10/21 02/28/22 losartan 100 mg tablet 100 mg PO DAILY #90 tabs 04/10/21 02/28/22 loratadine 10 mg tablet 10 mg PO DAILY 11/04/21 02/28/22 hydrocodone 5 mg-acetaminophen 325 1 tab PO Q8H PRN #8 tabs 02/28/22 mg tablet Previous Rx's Medication Instructions Recorded epinephrine 0.3 mg/0.3 mL 0.3 mg (0.3 mL) IM ONCE ##2 04/08/20 injection, auto-injector estradiol 0.01% (0.1 mg/gram) 1 g vaginal HS PRN #42.5 grams 04/10/21 vaginal cream (Estrace) ivermectin 1 % topical cream 1 applic topical DAILY #45 grams 04/10/21 levothyroxine 50 mcg tablet 50 mcg PO DAILY #90 tab-caps 04/10/21 losartan 100 mg tablet 100 mg PO DAILY #90 tabs 04/10/21 hydrocodone 5 mg-acetaminophen 325 1 tab PO Q8H PRN #8 tabs 02/28/22 mg tablet Allergies Allergy/AdvReac Type Severity Reaction Status Date / Time oxycodone [From Roxicodone] Allergy Severe Itching Verified 02/28/22 13:21 venom-honey bee Allergy Severe Hives Verified 02/28/22 13:21 nickel Allergy Intermediate rash Verified 02/28/22 13:21 CAT HAIR Allergy Mild sneezing Uncoded 02/28/22 13:21 DUST Allergy Mild sneezing Uncoded 02/28/22 13:21 trees and grass Allergy Mild Uncoded 02/28/22 13:21 General Stated Complaint: Trauma MISAEL: 3 Review of Systems <TONE Hurt - Last Filed: 03/01/22 08:26> Constitutional Constitutional: Denies headache(s) and Denies weakness ENT Ears, Nose, Mouth, and Throat: Denies headache(s) and Denies neck pain Cardiovascular Cardiovascular: Denies chest pain and Denies dyspnea Respiratory Respiratory: Denies dyspnea Gastrointestinal Gastrointestinal: Denies nausea and Denies vomiting Musculoskeletal Musculoskeletal: Reports arthralgias, Denies neck pain, Denies numbness and Denies tingling Neurologic Neurologic: Denies headache(s), Denies numbness, Denies tingling and Denies weakness Hematologic/Lymphatic Hematologic/Lymphatic: Denies easy bleeding and Denies easy bruising PFSH <TONE Hurt - Last Filed: 03/01/22 08:26> All Active Problems (Updated 02/28/22 @ 15:37 by TONE Hurt) Anterior dislocation of left shoulder (Acute) Shoulder fracture, left (Acute) Palpitation (Acute) Chest pain (Acute) Rosacea (Acute) Hypertension (Chronic) Pes anserinus bursitis of left knee (Acute) Trochanteric bursitis, left hip (Acute) Status post right knee replacement (Acute 05/24/19) History of total left knee replacement (Acute) Postoperative stiffness of total knee replacement (Acute) Status post manipulation right TKA 06/28/19 left TKA 08/29/19 Vitamin D deficiency (Chronic 03/28/18) Varicose veins of lower extremity (Chronic) Polyp of colon (Chronic) Tubular adenoma ([facility] [place] 07/28) Obstructive sleep apnea syndrome (Chronic 07/15/07) Bi-PAP 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) Hypothyroidism (Chronic 08/04/12) Cervical pain (neck) (Chronic 05/26/16) Allergic rhinitis (Chronic) seasonal; Medical History Basal cell carcinoma of back BASAL CELL CANCER ON HER BACK Cardiac arrhythmia PVC'S Electrolyte abnormality Family hx-breast malignancy sister grandmother Family hx-breast malignancy sister & grandmother Ganglion cyst of right groin Squamous cell carcinoma Face Yeast dermatitis Surgical History frozen shoulder Right History of arthroplasty of left knee History of local excision of skin lesion 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 Status post arthroscopy of right knee Right Status post carpal tunnel release Right Family History Mother , 70 Diabetes Essential hypertension Hyperlipidemia Stroke Breast cancer Father , 92 Hyperlipidemia Neoplasm PROSTATE Sister Breast cancer Sister Sleep apnea Essential hypertension Hyperlipidemia Sister Sleep apnea Essential hypertension Celiac disease Brother Sleep apnea Essential hypertension Hyperlipidemia Thyroid disease Maternal Grandfather , 78 Colon cancer Paternal Grandfather , 75 No problems noted. Maternal Grandmother , 78 Diabetes Essential hypertension Breast cancer Paternal Grandmother , 89 No problems noted. Son Essential hypertension Son No problems noted. Son No problems noted. Other Family hx-breast malignancy Social History Smoking/Tobacco Use Status: Never Second Hand Exposure: No Smoking risk assessment performed?: Yes Alcohol Intake: current Alcohol Intake frequency: a few times a week Alcohol type: wine Drug use: Never Substance use type: does not use Details: alcohol: t-1 one glass of wine Caregiver/Support person: No Household members: spouse Housing: house Communication Needs: Corrective Lenses Do you need help understanding health information?: Rarely Pets and animals: Yes Pets and animals: dog(s) Sexually active: No Do you think of yourself as: straight/heterosexual Current gender identity: female What is your relationship status?: How often do you talk on the phone with friends or family?: three or more times per week How often do you get together with friends or relatives?: once per week How often do you attend congregational or pentecostalism services?: 1-3 times per year Do you belong to any clubs or organized social groups?: yes Panel score (0-1 are the most socially isolated patients): 3 What type of physical activity do you participate in: walking Duration: 15-30 minutes/day Frequency: 5-6 times per week Silvia/Buddhist: Holiness Special silvia needs: No Seatbelt use: always Helmet use: Yes Helmet use: always Drive 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 or 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/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 Do you feel safe at home: Yes Do you feel safe in your relationship?: Yes Exam <TONE Hurt - Last Filed: 03/01/22 08:26> Const General: cooperative, healthy appearing and in distress Orientation: alert and awake [facility] Head: normal to inspection, normocephalic and atraumatic Eyes General: appearance normal, both eyes and all related structures Conjunctivae: conjunctivae normal Neck Neck: normal visual inspection, full ROM, trachea midline, supple and nontender Resp Effort & Inspection: normal respiratory effort and able to speak in complete sentences Auscultation: clear to auscultation bilaterally Cardio Rate: regular rate Rhythm: regular rhythm GI Palpation: soft and nontender Back/Spine/Pelvis Back: No back tenderness Skin General skin exam: no rashes or lesions noted Neuro General: patient alert, patient awake, patient oriented x3, moves all extremities and no focal motor deficits Cognition: normal cognition Speech: speech normal Gait: normal gait Sensory Exam: no sensory deficits noted Extrem General: full ROM and capillary refill normal Left upper extremity: shoulder/upper arm Details: tenderness, axillary nerve sensory function normal, abnormal ROM (Held in adduction) Details: pain with active ROM and deformity Location: of the shoulder joint Location: anteriorly Psych Appearance: grossly normal Mental Status: mental status grossly normal Course <TONE Hurt - Last Filed: 03/01/22 08:26> Vital Signs Vital signs: Vital Signs Pulse 67 02/28/22 13:16 Respiratory Rate 18 02/28/22 13:16 Blood Pressure 154/86 H 02/28/22 13:16 Pulse Oximetry 100 02/28/22 13:16 Temperature Source Temporal Artery Scan 02/28/22 13:16 Pulse 67 02/28/22 13:16 Respiratory Rate 18 02/28/22 13:16 Blood Pressure 154/86 H 02/28/22 13:16 Blood Pressure Position Sitting 02/28/22 13:16 Pulse Oximetry 100 02/28/22 13:16 Oxygen Delivery Method Room Air 02/28/22 13:16 Oxygen Flow Rate 0 02/28/22 13:16 Pain Level 10 02/28/22 13:16 Procedures <TONE Hurt - Last Filed: 03/01/22 08:26> Orthopedic Joint Reduction Joint #1: Time Out Performed: Yes Side: left Joint Reduction Location: shoulder Analgesia: procedural sedation Shoulder Technique Used (if applicable): external rotation (With adduction) Post-reduction neuro exam: intact Post-reduction vascular: intact Post Reduction X-Ray Obtained: Yes Post Reduction X-Ray Results: reduced Splint Applied: Yes (Swelling) Patient Tolerated Procedure: well <Mary Jane Florez DO - Last Filed: 03/01/22 19:26> Procedural Sedation Indication: fracture/dislocation reduction Preparation: cardiac nurse specialist applied, pulse oximeter, capnometry used and supplemental O2 applied IV Propofol dose (mg): 60 Patient Tolerated Procedure: other (pt briefly apneic with ETCo2 increase from 30s to 40-50s, pulse 40s-50s, bp stable) Complications: hypoventilation Interventions: assist by BVM (for approximately 2-3 minutes and then pt awoke, breathing normally, without any further complications)
[2022-02-28] MEDS: MORPHine 4 MG/ML SYR IM (13:27)
[2022-02-28] MEDS: HYDROmorphone 2 MG/ML VIAL 1 MG IVP (13:50)
--- NOTE | 2022-02-28 14:31 | DI.VRAD_ITS ---
PROCEDURE INFORMATION: Exam: XR Left Shoulder Exam date and time: 02/28/2022 2:06 PM Age: 71 years old Clinical indication: Pain; Shoulder; Left; Patient HX: Fall TECHNIQUE: Imaging protocol: Radiologic exam of the Left shoulder. Views: 2 or more views. COMPARISON: No relevant prior studies available. FINDINGS: Bones/joints: There is anterior dislocation of the left shoulder at the glenohumeral joint. There is evidence of Bankart fracture as well as Hill-Sachs deformity. The adjacent chest clavicle and scapula are unremarkable. Soft tissues: There is soft tissue swelling left shoulder with deformity at the shoulder joint. No evidence radiopaque foreign body. IMPRESSION: There is anterior dislocation of the left shoulder at the glenohumeral joint. There is evidence of Bankart fracture as well as Hill-Sachs deformity. Dictated and Authenticated by: Richmond Álvarez MD. Ordering:ANH Garcia MD
--- NOTE | 2022-02-28 15:00 | DI.CT_ITS ---
Exam(s) CT UPPER EXTREMITY LT WO EXAM: CT UPPER EXTREMITY LT WO CLINICAL HISTORY: shoulder, post reduction with fx TECHNIQUE: Imaging Protocol: Axial computed tomography images with coronal and sagittal reformatted images were created and reviewed. CONTRAST MATERIAL: None COMPARISON: No exams were available for comparison FINDINGS: Performed post reduction. There is a bony Bankart fracture of the anterior osseous glenoid with mild displacement. The bony fr agment measures 1.8 cm craniocaudal by 0.6 cm. There is a step at the articular surface measuring 1. 7 millimeters Subtle small Hill-Sachs deformity in the posterolateral humeral head. Coracoid process is intact. No fracture in the subglenoid scapula evident. No subjacent left rib fr actures. IMPRESSION: Bankart fracture deformity of the osseous glenoid. No subglenoid fracture the scapula noted. Small Hill-Sachs deformity on the humeral head RADIATION DOSE DELIVERED: 986.57mGy.cm Total DLP DATA REPOSITORY: All CT scans at this facility are submitted to the National Radiology Data Registry (NRDR) Dose Index Registry (DIR) with the [employer] (A[employer]). RADIATION OPTIMIZATION: All CT scans at this facility use at least one of these dose optimization te chniques: automated exposure control; mA and/or kV adjustment per patient size (includes targeted exa ms where dose is matched to clinical indication); or iterative reconstruction.
[2022-02-28] MEDS: Propofol 200 MG/20 ML VIAL IVP (15:14)
--- NOTE | 2022-02-28 15:22 | DI.RAD_ITS ---
Exam(s) XR SHOULDER LT COMP POST REDUC EXAM: XR SHOULDER LT COMP POST REDUC CLINICAL HISTORY: post reduction. TECHNIQUE: 2D digital imaging was performed. COMPARISON: CR,XR XR SHOULDER LT COMPLETE 2+V from 02/28/2022 FINDINGS: Two post reduction views: There is satisfactory reduction/realignment of the glenohumeral joint. No obvious fractures identified on these plain films. IMPRESSION: DATA REPOSITORY: RADIATION DOSE DELIVERED:
--- NOTE | 2022-02-28 16:23 | DI.VRAD_ITS ---
PROCEDURE INFORMATION: Exam: XR Left Shoulder Exam date and time: 02/28/2022 3:57 PM Age: 71 years old Clinical indication: Screening exam; Patient HX: Post reduction of L shoulder TECHNIQUE: Imaging protocol: Radiologic exam of the Left shoulder. Views: 2 or more views. COMPARISON: CR XR SHOULDER LT COMPLETE 2+V 28/02/2022 14:06 FINDINGS: Bones/joints: Post reduction view of shoulder. The CT findings of Bankart fracture and Hill-Sachs deformity are not appreciated on the plain films. Soft tissues: Unremarkable. IMPRESSION: Post reduction left shoulder. Dictated and Authenticated by: Yamini Cali MD. Ordering:ANH Garcia MD
--- NOTE | 2022-02-28 16:40 | DI.VRAD_ITS ---
PROCEDURE INFORMATION: Exam: CT Left Upper Extremity Without Contrast, Shoulder Exam date and time: 02/28/2022 3:48 PM Age: 71 years old Clinical indication: Other: Shoulder post reduction with FX TECHNIQUE: Imaging protocol: Computed tomography of the Left upper extremity without contrast. Exam focused on the shoulder. Radiation optimization: All CT scans at this facility use at least one of these dose optimization techniques: automated exposure control; mA and/or kV adjustment per patient size (includes targeted exams where dose is matched to clinical indication); or iterative reconstruction. COMPARISON: CR XR SHOULDER LT COMPLETE 2+V 28/02/2022 14:06 FINDINGS: Bones/joints: Post reduction left shoulder. Multilevel degenerative changes of the spine. Small anterior inferior displaced Bankart deformity. Possible small Hill-Sachs deformity. Soft tissues: Infiltration of the soft tissues of the shoulder. Pleural space: Apical pleural thickening. IMPRESSION: Bankart deformity. Possible small Hill-Sachs deformity. Dictated and Authenticated by: Yamini Cali MD. Ordering:ANH Garcia MD
--- NOTE | 2022-02-28 17:30 | NUR.NOTE ---
Amaury requested a consultation with[facility] Orthopaedics for shoulder dislocation and fracture, s/p reduction in the ER 02/28. I have faxed the request to ortho and the patient is in a sling.
== END 2022-02-28 17:35 | disposition home or self-care (01) ==
PROVIDERS: Emergency Provider Physician Assistant; PCP Family Medicine
DX: S43.085A Other dislocation of left shoulder joint, initial encounter (principal); S42.92XA Fracture of left shoulder girdle, part unspecified, initial encounter for closed fracture; W01.0XXA Fall on same level from slipping, tripping and stumbling without subsequent striking against object, initial encounter
CPT/HCPCS: 23650; 73030; 96372; 96374; 73200; J2270; J2704

== ENCOUNTER 2022-03-18 10:15 | Outpatient (CLI) | payer MEDICARE, SELFPAY ==
--- NOTE | 2022-03-18 10:00 | DI.RAD_ITS ---
Exam(s) XR SHOULDER LT COMPLETE 2+V EXAM: XR SHOULDER LT COMPLETE 2+V INDICATION: left shoulder f/u. COMPARISON: CR,XR XR SHOULDER LT COMP POST REDUC from 02/28/2022 CR,XR XR SHOULDER LT COMPLETE 2+V from 02/28/2022 TECHNIQUE: 2D digital imaging was performed. Two views. 2D digital imaging was performed. Two views. FINDINGS: There has been no change in the fracture at the greater tuberosity as well as in the anterior glenoid . DATA REPOSITORY: RADIATION DOSE DELIVERED:
== END 2022-03-18 10:16 | disposition home or self-care (01) ==
LOC: DIORS 10:16
PROVIDERS: PCP Family Medicine; Referring Provider Family Medicine; Visit Provider Student in an Organized Health Care Education/Training Program
DX: S43.015A Anterior dislocation of left humerus, initial encounter (principal); S42.142A Displaced fracture of glenoid cavity of scapula, left shoulder, initial encounter for closed fracture; S42.202A Unspecified fracture of upper end of left humerus, initial encounter for closed fracture; S46.012A Strain of muscle(s) and tendon(s) of the rotator cuff of left shoulder, initial encounter; X58.XXXA Exposure to other specified factors, initial encounter
CPT/HCPCS: 99214; 73030

== ENCOUNTER 2022-03-19 02:55 | Outpatient (CLI) | payer MEDICARE, SELFPAY ==
[2022-03-19 12:36] LABS: Hemoglobin A1C 5.6 % (<5.7)
[2022-03-19 12:42] LABS: ALT 21 U/L (14-59); AST 15 U/L (15-37); Albumin 3.9 g/dL (3.4-5.0); Alkaline Phosphatase 76 U/L (46-116); BUN 23 mg/dL (7-18); Bilirubin, Total 0.6 mg/dL (0.2-1.0); CREATININE 0.7 mg/dL (0.55-1.02); Calcium 9.2 mg/dL (8.5-10.1); Calculated LDL 119 mg/dL (<100); Chloride 105 mmol/L (98-107); Cholesterol 198 mg/dL (<200); Glucose 92 mg/dL (74-106); HDL Cholesterol 61 mg/dL (40-60); Sodium 142 mmol/L (136-145); TSH (W/Ref FT4) 2.26 uIU/mL (0.36-3.74); Total Protein 7.6 g/dL (6.4-8.2); Triglyceride 92 mg/dL (<150)
== END 2022-03-19 02:56 | disposition home or self-care (01) ==
LOC: LOS 02:55
PROVIDERS: PCP Family Medicine; Visit Provider Family Medicine
DX: E11.9 Type 2 diabetes mellitus without complications (principal); E03.9 Hypothyroidism, unspecified; I10 Essential (primary) hypertension; R00.2 Palpitations; R07.89 Other chest pain
CPT/HCPCS: 36415; 80053; 80061; 83036; 84443

== ENCOUNTER → 2022-03-20 14:45 | Outpatient (CLI) | payer MEDICARE, SELFPAY ==
--- NOTE | 2022-03-20 09:15 | DI.MRI_ITS ---
Exam(s) MR UPPER JOINT LT WO EXAM: MR UPPER JOINT LT WO CLINICAL HISTORY: traumatic left rotator cuff, fracture humerus/glenoid cavity,S46.012A. TECHNIQUE: Multiplanar multisequence MRI was performed. COMPARISON: CR XR SHOULDER LT COMPLETE 2+V from 03/18/2022 FINDINGS: BONES: There is a fracture seen in the anterior inferior glenoid with moderate marrow edema. There i s also nondisplaced fracture involving the greater tuberosity with associated marrow edema. JOINTS: Mild degenerative changes are seen at the acromioclavicular joint. The glenohumeral joint is normal. TENDONS: Supraspinatus: There is a partial articular surface tear of the supraspinatus tendon 1 cm from its in sertion site. Infraspinatus: There is tendinosis of the infraspinatus tendon. Subscapularis: Unremarkable. Teres Minor: Unremarkable. Biceps and Lincoln: Unremarkable. MUSCLES: Unremarkable. GLENOID LABRUM: There is mild increased signal seen in the inferior labrum appreciated on the coronal views. This may represent a partial tear. SOFT TISSUES: There is mild edema in the soft tissues around the glenoid inferiorly. LIGAMENTS: Unremarkable. OTHER: There is a small amount of fluid seen in the subacromial subdeltoid bursa. IMPRESSION: 1. Fractures seen in the anterior inferior glenoid and the greater tuberosity. 2. Partial articular surface tear of the supraspinatus tendon 1 cm from its insertion site. 3. Mild increased signal seen in the inferior labrum suspicious for tear. DATA REPOSITORY:
== END ==
PROVIDERS: PCP Family Medicine; Visit Provider Student in an Organized Health Care Education/Training Program
DX: S42.142A Displaced fracture of glenoid cavity of scapula, left shoulder, initial encounter for closed fracture (principal); S46.012A Strain of muscle(s) and tendon(s) of the rotator cuff of left shoulder, initial encounter; X58.XXXA Exposure to other specified factors, initial encounter
CPT/HCPCS: 73221

== ENCOUNTER → 2022-04-01 09:36 | Outpatient (BNVA) | payer MEDICARE, SELFPAY | PROVIDERS: PCP Family Medicine; Referring Provider Family Medicine; Visit Provider Student in an Organized Health Care Education/Training Program | DX: X58.XXXA Exposure to other specified factors, initial encounter (principal); S46.012A Strain of muscle(s) and tendon(s) of the rotator cuff of left shoulder, initial encounter; S42.142A Displaced fracture of glenoid cavity of scapula, left shoulder, initial encounter for closed fracture; S42.202A Unspecified fracture of upper end of left humerus, initial encounter for closed fracture | CPT/HCPCS: 99213 ==

== ENCOUNTER 2022-04-29 11:55 | Outpatient (CLI) | payer MEDICARE, SELFPAY ==
--- NOTE | 2022-04-29 11:30 | DI.RAD_ITS ---
Exam(s) XR SHOULDER LT COMPLETE 2+V EXAM: XR SHOULDER LT COMPLETE 2+V CLINICAL HISTORY: f/u exam. TECHNIQUE: 2D digital imaging was performed. COMPARISON: CR XR SHOULDER LT COMPLETE 2+V from 03/18/2022 MR MR UPPER JOINT LT WO from 03/20/2022 FINDINGS: Two views: Nondisplaced fracture of the greater tuberosity appears stable. No displacement. IMPRESSION: DATA REPOSITORY: RADIATION DOSE DELIVERED:
== END 2022-04-29 11:56 | disposition home or self-care (01) ==
LOC: DIORS 11:55
PROVIDERS: PCP Family Medicine; Referring Provider Family Medicine; Visit Provider Student in an Organized Health Care Education/Training Program
DX: S42.202A Unspecified fracture of upper end of left humerus, initial encounter for closed fracture (principal); S42.142A Displaced fracture of glenoid cavity of scapula, left shoulder, initial encounter for closed fracture; S46.012A Strain of muscle(s) and tendon(s) of the rotator cuff of left shoulder, initial encounter; X58.XXXA Exposure to other specified factors, initial encounter
CPT/HCPCS: 99213; 73030

== ENCOUNTER 2022-06-16 11:51 | Outpatient (CLI) | payer MEDICARE, SELFPAY ==
--- NOTE | 2022-06-16 11:00 | DI.RAD_ITS ---
Exam(s) XR SHOULDER LT COMPLETE 2+V EXAM: XR SHOULDER LT COMPLETE 2+V CLINICAL HISTORY: left shoulder f/u. TECHNIQUE: 2D digital imaging was performed. COMPARISON: CR XR SHOULDER LT COMPLETE 2+V from 04/29/2022 FINDINGS: Two views: No fracture or dislocation. No abnormal soft tissue calcifications. Subacromial space is not dimini shed. AC joint unremarkable. No obvious degenerative narrowing of the glenohumeral joint on this li mited two view study. Small degenerative cysts noted in the lateral 3rd of the humeral head. IMPRESSION: DATA REPOSITORY: RADIATION DOSE DELIVERED:
== END 2022-06-16 11:52 | disposition home or self-care (01) ==
LOC: DIORS 11:51
PROVIDERS: PCP Family Medicine; Referring Provider Family Medicine; Visit Provider Student in an Organized Health Care Education/Training Program
DX: S46.012D Strain of muscle(s) and tendon(s) of the rotator cuff of left shoulder, subsequent encounter (principal); S42.202D Unspecified fracture of upper end of left humerus, subsequent encounter for fracture with routine healing; S42.142D Displaced fracture of glenoid cavity of scapula, left shoulder, subsequent encounter for fracture with routine healing; X58.XXXD Exposure to other specified factors, subsequent encounter
CPT/HCPCS: 99213; 73030

== ENCOUNTER 2022-11-25 01:09 | Outpatient (CLI) | payer MEDICARE, SELFPAY ==
--- NOTE | 2022-11-25 07:00 | DI.MAMMO_ITS ---
Exam(s) MAMMO SCREENING EXAM: MAMMO SCREENING CLINICAL HISTORY: screening,z12.39. TECHNIQUE: Bilateral full field digital CC and MLO mammographic images were obtained with 3D tomosyn thesis and utilizing computer aided detection (CAD). COMPARISON: Prior mammograms were reviewed. FINDINGS: There has been no significant change in the appearance and distribution of the fibroglandular tissue. There are no CAD designations. There are no new spiculated masses nor malignant appearing microcalcification groups. There is no significant architectural distortion nor skin thickening-retraction. IMPRESSION: No radiographic evidence of malignancy. BI-RADS Category 1 - Negative Breast Density - Category A - Almost entirely fatty Breast density Category C or D implies that the patient has dense breast tissue. Dense breast tissue can make it harder to find cancer on a mammogram. Dense breast tissue is also associated with an incr eased risk of breast cancer. This information about the result of the mammogram report was provided to the patient to raise their awareness. Use this report when you speak with the patient about their risks for breast cancer, which includes their family history. At that time, you may recommend additional screening tests (Ultrasoun d or MRI) as these tests may add significant information. A negative radiographic report should not delay biopsy if a dominant or clinically suspicious mass is present. Up to ten percent of cancers are not identified on mammography. A negative report may reinforce clinical impression. Adenosis and dense breasts may obscure an underlying neoplasm. False positive reports average 6 to 10%. Patient will receive a letter notifying them of these results.
== END 2022-11-25 01:29 ==
LOC: DI 01:10
PROVIDERS: PCP Family Medicine; Visit Provider Family Medicine
DX: Z12.31 Encounter for screening mammogram for malignant neoplasm of breast (principal)
CPT/HCPCS: 77063; 77067

== ENCOUNTER 2022-12-08 00:33 | Outpatient (CLI) | payer MEDICARE, SELFPAY ==
--- NOTE | 2022-12-08 06:30 | ETT_ITS ---
APPROVED REPORT Exam: Exercise Treadmill Patient Location: Out-Patient Room/Bed: Stress Nurse: Carli Alfaro RN Ordering Provider:JAGRUTI KNUTSON, Contact Number: [phone] BMI: 31.75 Baseline Rhythm: Sinus Bradycardia/Sinus Rhythm Indications: Chest pain, discomfort in chest Medical History Medical History: Hypertension, prediabetes, palpitations, MALI, chest pain, MRSA Cardiac Medications: Losartan, levothyroxine Allergies: Oxycodone Cardiac Risk Factors: Hypertension, prediabetes, family hx Previous Cardiac Procedures: None Pretest Chest Pain Characteristics: None Exercise History: Physically active Physical Disabilities: None Lung Sounds: Clear to auscultation Heart Sounds: Regular Stress Test Details Test: Exercise stress testing was performed using a Fei protocol. Rest Stress HR Resting HR Supine: 59 bpm Max Heart Rate (APMHR): 150 bpm Resting HR Standin bpm Target HR (85% APMHR): 128 bpm Max HR Achieved: 143 bpm % of APMHR: 95 Recovery HR: 79 bpm HR response to stress: Normal HR response to stress BP Resting BP Supine: 148/70 mmHg Resting BP Standin/76 mmHg Max BP: 172/60 mmHg Recovery BP: 136/70 mmHg BP response to stress: Normal blood pressure response to stress. ECG Resting ECG: Sinus Bradycardia, Sinus Rhythm Ectopy: None Stress ECG: Sinus Tachycardia ST Change: No significant ST segment changes noted Arrhythmia: Rare PAC and PVCs Recovery ECG: Sinus Rhythm Recovery ST Change: No significant ST segment changes noted Recovery Arrhythmia: Rare PVC Clinical Reason for Termination: Fatigue Stress Symptoms: General Fatigue, Dyspnea Exercise duration: 6 min21 sec Highest Stage Reached: Stage 3: 3.4 mph at 14% grade. Exercise capacity: 7.57 METs Angina Score: None Ramirez Treadmill Score: 5.4 Rate Pressure Product: [id number] Stress ECG Conclusion 1. Resting electrocardiogram was within normal limits 2. Patient exercised on the Fei protocol and completed a workload of 7.57 METS stopping due to fati annalisa 3. Normal heart rate and blood pressure response to exercise. The patient achieved 95% of predicted heart rate for age 4. There was no electrocardiographic evidence of myocardial ischemia 5. There were no significant dysrhythmias Ramirez Treadmill Score is 5.4 which is Low risk. Stress Test Summary STAGE Time (mins) Speed (mph) Grade (%) HR BP SpO2 SYMPTOMS METS Supine 59 148/70 Standing 68 138/76 97% 1 3 1.7 10 104 150/80 96% 4.5 2 6 2.5 12 130 164/74 98% 7 3 9 3.4 14 138 97% Mild SOB 10 1 min recovery 106 172/60 97% Mild SOB 3 min recovery 78 164/70 98% SOB resolved 6 min recovery 79 136/70
== END 2022-12-08 00:53 ==
LOC: DI 00:33
PROVIDERS: PCP Family Medicine; Visit Provider Family Medicine
DX: R07.89 Other chest pain (principal); R07.9 Chest pain, unspecified
CPT/HCPCS: 93016; 93018; 93017

== ENCOUNTER 2023-05-07 02:34 | Outpatient (CLI) | payer MEDICARE, SELFPAY ==
[2023-05-07 08:30] LABS: ALT 25 U/L (14-59); AST 18 U/L (15-37); Albumin 3.9 g/dL (3.4-5.0); Alkaline Phosphatase 62 U/L (46-116); Anion Gap 8.7 mmol/L (3-11); BUN 22 mg/dL (7-18); Bilirubin, Total 0.5 mg/dL (0.2-1.0); CO2 27.3 mmol/L (21.0-32.0); CREATININE 0.9 mg/dL (0.55-1.02); Calcium 9.5 mg/dL (8.5-10.1); Calculated LDL 127 mg/dL (<100); Chloride 105 mmol/L (98-107); Cholesterol 202 mg/dL (<200); Estimated GFR 68.77 (mL/min/1.73m2); Glucose 104 mg/dL (74-106); HDL Cholesterol 68 mg/dL (40-60); Potassium 4.1 mmol/L (3.5-5.1); Sodium 141 mmol/L (136-145); Total Protein 7.4 g/dL (6.4-8.2); Triglyceride 37 mg/dL (<150)
== END 2023-05-07 02:35 | disposition home or self-care (01) ==
LOC: LBO 02:34
PROVIDERS: PCP Family Medicine; Visit Provider Family Medicine
DX: E03.9 Hypothyroidism, unspecified (principal); I10 Essential (primary) hypertension
CPT/HCPCS: 36415; 80053; 80061; 84443

== ENCOUNTER 2024-05-16 03:52 | Outpatient (CLI) | payer MEDICARE, SELFPAY ==
[2024-05-16 13:03] LABS: ALT 36 U/L (14-59); AST 18 U/L (15-37); Albumin 3.8 g/dL (3.4-5.0); Alkaline Phosphatase 74 U/L (46-116); BUN 14 mg/dL (7-18); Bilirubin, Total 0.53 mg/dL (0.2-1.0); CREATININE 0.8 mg/dL (0.55-1.02); Calcium 8.9 mg/dL (8.5-10.1); Calculated LDL 136 mg/dL (<100); Chloride 104 mmol/L (98-107); Cholesterol 218 mg/dL (<200); Estimated GFR 78.72 (mL/min/1.73m2); Glucose 100 mg/dL (74-106); HDL Cholesterol 61 mg/dL (40-60); Potassium 4.1 mmol/L (3.5-5.1); Sodium 141 mmol/L (136-145); TSH (W/Ref FT4) 1.51 uIU/mL (0.36-3.74); Total Protein 7.4 g/dL (6.4-8.2); Triglyceride 107 mg/dL (<150)
[2024-05-16 13:08] LABS: Vitamin B12 1067 pg/mL (193-986); Vitamin D 25 Total 51.8 ng/mL (30-100)
== END 2024-05-16 03:53 | disposition home or self-care (01) ==
LOC: LOS 03:52
PROVIDERS: Internal Medicine Sleep Medicine; PCP Family Medicine; Visit Provider Family Medicine
DX: E03.9 Hypothyroidism, unspecified (principal); I10 Essential (primary) hypertension; E55.9 Vitamin D deficiency, unspecified; R53.83 Other fatigue
CPT/HCPCS: 36415; 80053; 80061; 82306; 82607; 84443

== ENCOUNTER 2024-05-22 01:11 | Outpatient (CLI) | payer MEDICARE, SELFPAY ==
--- NOTE | 2024-05-22 07:30 | DI.MAMMO_ITS ---
Exam(s) MAMMO SCREENING EXAM: MAMMO SCREENING CLINICAL HISTORY: screening,z12.39. TECHNIQUE: Bilateral full field digital CC and MLO mammographic images were obtained with 3D tomosyn thesis and utilizing computer aided detection (CAD). COMPARISON: Prior mammograms were reviewed. FINDINGS: No new significant findings in left breast. In the posterior aspect of the right breast there is well-defined nodular density measuring 6 x 4 mm medial of center located 12 cm in from the nipple. This probably represents a skin mole and I note t hat a skin mole marker was placed in this location on prior mammogram of April 2019. Although so mewhat superficially located, it is not on the last 2 slices on the tomosynthesis and therefore canno t be assumed to be a skin mole There are no new spiculated masses nor malignant appearing microcalcification groups. There is no significant architectural distortion nor skin thickening-retraction. IMPRESSION: 1. No radiographic evidence of malignancy in the left breast. 2. Nodule versus skin mole posteriorly in the medial aspect of the right breast. Additional views wi th skin markers recommended and possible ultrasound BI-RADS Category 0 - Incomplete: Need additional imaging evaluation Breast Density - Category A - Almost entirely fatty Breast density Category C or D implies that the patient has dense breast tissue. Dense breast tissue can make it harder to find cancer on a mammogram. Dense breast tissue is also associated with an incr eased risk of breast cancer. This information about the result of the mammogram report was provided to the patient to raise their awareness. Use this report when you speak with the patient about their risks for breast cancer, which includes their family history. At that time, you may recommend additional screening tests (Ultrasoun d or MRI) as these tests may add significant information. A negative radiographic report should not delay biopsy if a dominant or clinically suspicious mass is present. Up to ten percent of cancers are not identified on mammography. A negative report may reinforce clinical impression. Adenosis and dense breasts may obscure an underlying neoplasm. False positive reports average 6 to 10%. Patient will receive a letter notifying them of these results.
== END 2024-05-22 01:31 ==
LOC: DI 01:11
PROVIDERS: PCP Family Medicine; Visit Provider Family Medicine
DX: Z12.31 Encounter for screening mammogram for malignant neoplasm of breast (principal); R92.8 Other abnormal and inconclusive findings on diagnostic imaging of breast
CPT/HCPCS: 77063; 77067

== ENCOUNTER 2024-05-24 00:48 | Outpatient (CLI) | payer MEDICARE, SELFPAY ==
--- NOTE | 2024-05-24 | DI.MAMMO_ITS ---
Exam(s) MAMMO SCREEN CALL BACK UNI EXAM: MAMMO SCREEN CALL BACK UNI-RIGHT CLINICAL HISTORY: F/U MAMMO, NODULAR DENSITY, ? SKIN MOLE VS NODULE, R92.8. TECHNIQUE: Unilateral RIGHT BREAST CC AND MLO mammographic images obtained with 3D tomosynthesisand utilizing computer aided detection (CAD). . THIS ADDITIONAL IMAGING WAS PERFORMED WITH PLACEMENT SKIN MARKER OVER SKIN MOLE, PER REQUEST ON RE CENT REPORT OF SCREENING MAMMOGRAM OF 05/22/2024 COMPARISON: Prior mammograms were reviewed. This additional imaging was performed due to findings described on the recent screening mammogram of 05/22/2024.. FINDINGS: These additional views demonstrate that the previously described nodule does indeed correspond to the skin mole. IMPRESSION: 1. No radiographic evidence of malignancy. 2. Right breast skin mole Patient should not be charged for this additional study today. The patient was informed of these findings and recommendations by myself prior to leaving the departm ent today. BI-RADS Category 2 - Benign Findings Breast Density - Category A - Almost entirely fatty Breast density Category C or D implies that the patient has dense breast tissue. Dense breast tissue can make it harder to find cancer on a mammogram. Dense breast tissue is also associated with an incr eased risk of breast cancer. This information about the result of the mammogram report was provided to the patient to raise their awareness. Use this report when you speak with the patient about their risks for breast cancer, which includes their family history. At that time, you may recommend additional screening tests (Ultrasoun d or MRI) as these tests may add significant information. A negative radiographic report should not delay biopsy if a dominant or clinically suspicious mass is present. Up to ten percent of cancers are not identified on mammography. A negative report may reinforce clinical impression. Adenosis and dense breasts may obscure an underlying neoplasm. False positive reports average 6 to 10%. Patient will receive a letter notifying them of these results.
== END 2024-05-24 01:08 ==
LOC: DI 00:49
PROVIDERS: PCP Family Medicine; Visit Provider Family Medicine
DX: Z12.31 Encounter for screening mammogram for malignant neoplasm of breast (principal); R92.8 Other abnormal and inconclusive findings on diagnostic imaging of breast
CPT/HCPCS: 77063; 77067

== ENCOUNTER 2024-12-28 01:38 | Outpatient (CLI) | payer MEDICARE, SELFPAY ==
[2024-12-28 12:29] LABS: HCT 39.1 % (36.0-46.0); HGB 13.2 g/dL (11.2-15.7); MCH 30.6 pg (27.0-33.0); MCHC 33.8 % (32.0-36.0); MCV 91 fL (80-95); MPV 11.7 fL (8.0-11.0); Platelet Count 219 10^3/uL (130-400); RBC 4.32 10^6/uL (3.93-5.22); RDW 12.4 % (11.7-14.6); WBC 5.12 10^3/uL (4.4-10.8)
[2024-12-28 12:51] LABS: Iron 81 ug/dL (50-170)
[2024-12-28 13:13] LABS: ALT 24 U/L (14-59); AST 17 U/L (15-37); Albumin 3.8 g/dL (3.4-5.0); Alkaline Phosphatase 79 U/L (46-116); Anion Gap 7.1 mmol/L (3-11); BUN 17 mg/dL (7-18); Bilirubin, Total 0.5 mg/dL (0.2-1.0); CO2 26.9 mmol/L (21.0-32.0); CREATININE 0.7 mg/dL (0.55-1.02); Calcium 9.1 mg/dL (8.5-10.1); Calculated LDL 158 mg/dL (<100); Chloride 105 mmol/L (98-107); Cholesterol 241 mg/dL (<200); Estimated GFR 91.83 (mL/min/1.73m2); Ferritin 121 ng/mL (8-252); Glucose 104 mg/dL (74-106); HDL Cholesterol 65 mg/dL (>or=50); Potassium 3.9 mmol/L (3.5-5.1); Sodium 139 mmol/L (136-145); Total Protein 7.4 g/dL (6.4-8.2); Triglyceride 93 mg/dL (<150)
[2024-12-29 10:11] LABS: Hepatitis C Ab w Rflx HCV PCR Negative (Negative)
== END 2024-12-28 01:39 | disposition home or self-care (01) ==
LOC: LOS 01:38
PROVIDERS: PCP Family Medicine; Visit Provider Family Medicine
DX: I10 Essential (primary) hypertension (principal); Z11.59 Encounter for screening for other viral diseases; D50.9 Iron deficiency anemia, unspecified
CPT/HCPCS: 36415; 80053; 80061; 85027; 86803; 82728; 83540

== ENCOUNTER 2025-06-07 03:58 | Outpatient (CLI) | payer MEDICARE, SELFPAY ==
--- NOTE | 2025-06-07 08:30 | DI.MAMMO_ITS ---
Exam(s) MAMMO SCREENING EXAM: MAMMO SCREENING CLINICAL HISTORY: screening,Z12.39 TECHNIQUE: Mammograms were interpreted according to the usual protocol including computer analysis with CAD system, tomosynthesis and C-view imaging. COMPARISON: 2015 through 2023 FINDINGS: The breasts are composed of mainly fatty density , Breast Density category A. No suspicious masses or suspicious microcalcifications are seen. No skin thickening or abnormal axillary lymph nodes are seen. There has been no significant change from prior exams. IMPRESSION: BI-RADS Category 1, Negative mammogram Yearly screening mammography is recommended. Breast Density- Category A - The breast are almost entirely fatty. Breast density Category C or D implies that the patient has dense breast tissue. Dense breast tissue can make it harder to find cancer on a mammogram. Dense breast tissue is also associated with an increased risk of breast cancer. This information about the result of the mammogram report was provided to the patient to raise their awareness. Use this report when you speak with the patient about their risks for breast cancer, which includes their family history. At that time, you may recommend additional screening tests (Ultrasound or MRI) as these tests may add significant information. A negative radiographic report should not delay biopsy if a dominant or clinically suspicious mass is present. Up to ten percent of cancers are not identified on mammography. A negative report may reinforce clinical impression. Adenosis and dense breasts may obscure an underlying neoplasm. False positive reports average 6 to 10%. Patient will receive a letter notifying them of these results.
== END 2025-06-07 04:18 ==
LOC: DI 03:58
PROVIDERS: PCP Family Medicine; Visit Provider Family Medicine
DX: Z12.31 Encounter for screening mammogram for malignant neoplasm of breast (principal); R92.313 Mammographic fatty tissue density, bilateral breasts
CPT/HCPCS: 77063; 77067

== ENCOUNTER 2025-06-19 01:22 | Outpatient (CLI) | payer MEDICARE, SELFPAY ==
[2025-06-19 14:19] LABS: ALT 21 U/L (14-59); AST 10 U/L (15-37); Albumin 3.7 g/dL (3.4-5.0); Alkaline Phosphatase 61 U/L (46-116); Anion Gap 8.1 mmol/L (3-11); BUN 13 mg/dL (7-18); Bilirubin, Total 0.5 mg/dL (0.2-1.0); CO2 26.9 mmol/L (21.0-32.0); Calcium 8.7 mg/dL (8.5-10.1); Chloride 103 mmol/L (98-107); Cholesterol 223 mg/dL (<200); Glucose 90 mg/dL (74-106); HDL Cholesterol 53 mg/dL (>or=50); Potassium 4.1 mmol/L (3.5-5.1); Sodium 138 mmol/L (136-145); Total Protein 7.4 g/dL (6.4-8.2)
[2025-06-19 14:22] LABS: Hemoglobin A1C 5.2 % (<5.7)
== END 2025-06-19 01:23 | disposition home or self-care (01) ==
PROVIDERS: PCP Family Medicine; Visit Provider Family Medicine
DX: E11.9 Type 2 diabetes mellitus without complications (principal); Z00.00 Encounter for general adult medical examination without abnormal findings; I10 Essential (primary) hypertension
CPT/HCPCS: 36415; 80053; 80061; 83036